=== PATIENT | female | born 1990 | race Caucasian/White ===

== ENCOUNTER 2017-10-24 17:01 | Observation (INO) ==
--- NOTE | 2017-10-24 17:44 | Emergency Department Note ---
Disposition Clinical Impression: Spontaneous , Vaginal bleeding Disposition: Admitted As Inpatient Forms: ED Satisfaction Letter Time of Disposition: 17:55 HPI - General Chief complaint: ED Vaginal Bleeding Stated complaint: Miscarriage Time Seen by Provider: 10/24/17 17:05 Source: patient Limitations: no limitations Nursing Notes Reviewed: Yes Vital Signs Reviewed: Yes - History of Present Illness HPI Narrative: Concern about status. 27-year-old female presents ED for spontaneous miscarriage. She was known thought to be 8 weeks. Most recent ultrasound revealed demise at 6-1/2 weeks. It progressed with expectant spontaneous discharge of the fetus. She has had intermittent bleeding and passed what she thought was some products of conception does appear like tissue. Today she had brisk escalation of pain followed by passage of clots and further bleeding. Bleeding has persisted and she was advised per her OB to return to the ED. Currently does not have much pain. No fever. No lightheadedness. No dysuria. Pt Subjective Complaint: vaginal bleeding Onset (ago): Just CHUTE GREASER Consistency: constant Location: pelvis Pain Severity: mild Improves with: none Worsens with: none Associated symptoms: Reports: denies other symptoms Vaginal discharge: none Vaginal bleeding: heavy, clots OB History - Previous Pregnancies: miscarriage If care: followed by OB, previous ultrasound confirms IUP - Related Data : 2 Para: 1 Home Medications Medication Instructions Recorded Confirmed ALPRAZolam [Xanax 1 MG Tablet] 1 mg PO BID 10/24/17 10/24/17 Amitriptyline [Elavil] 25 mg PO BID 10/24/17 10/24/17 Labetalol [Trandate] 100 mg PO DAILY 10/24/17 10/24/17 Pnv with Ca,No.72/Iron/FA [Pnv 1 tab PO DAILY 10/24/17 10/24/17 Plus Multivit Tab] Sertraline [Zoloft] 50 mg PO DAILY 10/24/17 10/24/17 Allergies Allergy/AdvReac Type Severity Reaction Status Date / Time No Known Allergies Allergy Verified 09/30/17 12:15 All systems ED: reviewed and negative except as stated. 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 Absent: respiratory distress - Cardiovascular Cardiovascular exam: Present: regular rate - Abdominal Exam Abdominal exam: Present: soft, Non-Tender - Female External Exam: Present: normal external exam Speculum Exam: Present: vaginal bleeding (Continuation of vaginal bleeding precluding review of the cervix. I evacuated the vaginal vault of blood 3 times and continued filling fairly rapidly. Moderate clots as well.) - Expanded Lower Extremity Exam Foot/toe exam: Absent: swelling Neurovascular/Tendon exam: Present: normal capillary refill - Back Exam Back exam: Absent: CVA tenderness (R), CVA tenderness (L) - Neurological Exam Neurological exam: Present: alert, oriented X3 - Psychiatric Psychiatric exam: Present: normal affect - Skin Skin exam: Present: warm, dry Course - Reevaluation(s) Reevaluation #1: D/W credit and collections analyst OB; requested order U/S and will see in the ED Time: 17:47 Reevaluation #2: Seen by OB in the ED; will take to L&D for observation, U/S cancelled. Time: 18:29 Vital Signs Temperature 97.4 F L 10/24/17 17:11 Pulse Rate 84 10/24/17 17:11 Respiratory Rate 18 10/24/17 17:11 Blood Pressure 145/108 10/24/17 17:11 O2 Sat by Pulse Oximetry 97 10/24/17 17:11 Temperature 97.4 F L 10/24/17 17:11 Pulse Rate 84 10/24/17 17:11 Respiratory Rate 18 10/24/17 17:11 Blood Pressure 145/108 10/24/17 17:11 O2 Sat by Pulse Oximetry 97 10/24/17 17:11 Oxygen Delivery Oxygen Delivery Room Air
[2017-10-24] MEDS ORDERED: Naloxone 0.4 MG/ML INJ IVP PRN ×2 (18:40→18:41)
--- NOTE | 2017-10-24 18:59 | OB/GYN History & Physical ---
Date of Encounter: 10/24/17 Time of Encounter: 18:56 Assessment and Plan (1) Spontaneous Current visit: Yes Status: Acute Admit to 1 NE. for observation Draw CBC now and at 0400 LR at 125 We will keep nothing by mouth for now, if no increase in bleeding we will change to regular diet in AM Methergine 0.2 mg by mouth 1 Plan of care discussed with Dr. Covarrubias History of Present Illness HPI: Ms. Cruz is a 27 year old female . Presents presented to the emergency department vaginal bleeding. Patient was diagnosed with missed AB on 10/05 With subsequent follow-up with Dr. Nguyen in the office on 10/15. Ultrasound on shows 2.3 cm gestational sac with irregular contour and small amount of fluid in the endocervical canal. Patient states she has been bleeding off and on since 10/05, today the bleeding increased to large clotting, then during dinner noticed that her pants are saturated, and blood was dripping onto the floor. Patient states she also has been having severe cramping the last 3 hours , took Motrin prior to arrival in the ED. ED physician called for consult after speculum exam showed vaginal vault continually filling with blood, and large clots noted. Patient states otherwise feels fine, besides being a little bit dizzy. Past Med Surg Social Fam HX - Past Medical History Medical history: no medical history Psychiatric history: anxiety, depression - Past Surgical History Surgical History: hip replacement - Social History Smoking Status: Never smoker Smokeless Tobacco Status: No Alcohol use: rarely Drug use: none - Family History Mother Living Status: Still Living Hx Family GI Disorders: Yes (Diverticulitis) Obstetrical History - Pregnancies : 2 Para: 1 Term: 1 : 0 Ab's: 1 Livin Medications and Allergies ALPRAZolam [Xanax 1 MG Tablet] 1 mg PO BID 10/24/17 [History] Amitriptyline [Elavil] 25 mg PO BID 10/24/17 [History] Labetalol [Trandate] 100 mg PO DAILY 10/24/17 [History] Pnv with Ca,No.72/Iron/FA [Pnv Plus Multivit Tab] 1 tab PO DAILY [History] Sertraline [Zoloft] 50 mg PO DAILY 10/24/17 [History] 3 Allergy/AdvReac Type Severity Reaction Status Date / Time No Known Allergies Allergy Verified 09/30/17 12:15 Review of System OB All systems PM: reviewed and no additional remarkable complaints except as stated - Constitutional Constitutional ROS IM: as per HPI Exam - Vital Signs Vital signs: Initial Vital Signs Temp Pulse Resp BP Pulse Ox 97.4 F L 84 18 145/108 97 10/24/17 17:11 10/24/17 17:11 10/24/17 17:11 10/24/17 17:11 10/24/17 17:11 - Constitutional Constitutional: well developed, well nourished, no acute distress - Abdomen Abdomen: Present: bowel sounds normal - Vulva Vulva: bilateral: normal - Vagina Vagina: Present: normal moisture, discharge (Speculum exam shows moderate amount of blood in vaginal vault, with small clot cleared with Carranza swabs, after that minimal bleeding noted from cervical os with 3 minutes of observation) - Cervix Cervix: Absent: lesion - Anus/Rectum Anus/Rectum: Present: normal perianal skin Results All other labs normal. - VTE Reasons for not Prescribing Prophylaxis: Treatment not Indicated - Low risk for VTE
[2017-10-24 19:18] LABS: Hematocrit 31.4 % (35.3-44.9); Hemoglobin 10.5 g/dL (11.5-15.4); Mean Corpuscular HGB Conc 33.4 g/dL (31.6-35.5); Mean Corpuscular Hemoglobin 28.3 pg (28.0-33.3); Mean Corpuscular Volume 84.6 fL (83.0-100.0); Mean Platelet Volume 10.3 fL (9.4-12.4); Platelet Count 263 K/mcL (140-400); Red Blood Count 3.71 M/mcL (3.82-4.97); Red Cell Distribution Width 14.6 % (11.5-14.5)
[2017-10-24] MEDS: Ringers Solution, Lactated 1,000 ML IVC SCH (20:20)
[2017-10-25] MEDS ORDERED: miSOPROStol 100 MCG TABLET ONE (04:01)
[2017-10-25 04:15] LABS: Hematocrit 30.4 % (35.3-44.9); Hemoglobin 10.3 g/dL (11.5-15.4); Immature Platelets 2.9 % (1.1-6.1); Mean Corpuscular HGB Conc 33.9 g/dL (31.6-35.5); Mean Corpuscular Hemoglobin 28.5 pg (28.0-33.3); Mean Corpuscular Volume 84.2 fL (83.0-100.0); Mean Platelet Volume 10.4 fL (9.4-12.4); Red Blood Count 3.61 M/mcL (3.82-4.97); Red Cell Distribution Width 14.4 % (11.5-14.5)
--- NOTE | 2017-10-25 07:25 | Event Note ---
Date of Encounter: 10/25/17 Time of Encounter: 07:21 0215-Called by nursing staff at 0145,pt had no bleeding from [id number], then pt complained she felt she was leaking, Had moderate amount of bleeding with golf ball sized clots. I went to assess patient and performed a speculum exam. Large clots noted in vaginal vault and vaginal vault continue to fill with blood. Swabbed until moderately clear able to visualize cervix, cervix remains visually closed, with small amount of bleeding noted from cervix patient given 0.2 mg Methergine by mouth at this time CBC redrawn hemoglobin from 10.6-10.3 vital signs stable at this time, we will continue to observe 0400- Called with bleeding update from nursing staff. Pt continues to have bleeding. In room to evaluate, Chux pads weighed. Discussed with Dr. Covarrubias Cytotec 400mcg given po, will continue to monitor. CBC at 0800 0600- Per RN, pt sleeping, bleeding has slowed down 155ml on last check 0700- In room to evaluate patient. Pt states was just up to restroom and passed large clot. softball sized clot noted in hat. Pt states feel very dizzy, slightly pale. Vital signs stable will redraw CBC now. Discussed need for D&C with patient and . Pt in agreement with proceeding with D&C 0720- BIOANALYST updated about patient, Lucy Covarrubias and Patrick updated, Care transferred to Dr. Nguyen at this time.
[2017-10-25 07:43] LABS: Hematocrit 29.2 % (35.3-44.9); Hemoglobin 9.7 g/dL (11.5-15.4); Mean Corpuscular HGB Conc 33.2 g/dL (31.6-35.5); Mean Corpuscular Volume 84.4 fL (83.0-100.0); Mean Platelet Volume 10.8 fL (9.4-12.4); Platelet Count 290 K/mcL (140-400); Red Blood Count 3.46 M/mcL (3.82-4.97); Red Cell Distribution Width 14.6 % (11.5-14.5)
[2017-10-25] MEDS: Ketorolac 30 MG/ML VIAL IVP PRN ×2 (10:06→18:36)
[2017-10-25 12:27] LABS: Hematocrit 26.6 % (35.3-44.9); Mean Corpuscular HGB Conc 33.8 g/dL (31.6-35.5); Mean Corpuscular Hemoglobin 28.5 pg (28.0-33.3); Mean Corpuscular Volume 84.2 fL (83.0-100.0); Mean Platelet Volume 10.7 fL (9.4-12.4); Platelet Count 284 K/mcL (140-400); Red Blood Count 3.16 M/mcL (3.82-4.97); Red Cell Distribution Width 14.6 % (11.5-14.5)
[2017-10-25] MEDS ORDERED: Methylergonovine 0.2 MG/ML AMPUL IM ONE (14:37)
[2017-10-25] MEDS: Ringers Solution, Lactated 1,000 ML IVC SCH ×2 (14:54→23:07)
--- NOTE | 2017-10-25 15:03 | Event Note ---
Date of Encounter: 10/25/17 Time of Encounter: 15:01 Talk to radiologist's earlier today regarding the findings of the ultrasound. Ultrasound revealed endometrial thickening of 2 cm. No products of conception were visualized. I discussed this with the patient and her . Patient has continued to have episodic bleeding. Discussed the possibility of needing a vacuum D&E. We will make patient nothing by mouth at this time and have anesthesia see the patient.
--- NOTE | 2017-10-25 21:44 | Event Note ---
Date of Encounter: 10/25/17 Time of Encounter: 21:43 Patient having scant bleeding at this time. Vital signs are stable. I told the patient that it is unlikely she will need to have a D&C. Patient and 's questions were answered.
[2017-10-26] MEDS: Ketorolac 30 MG/ML VIAL IVP PRN ×3 (00:22→17:09)
[2017-10-26 04:40] LABS: Basophils % 0.1 %; Eosinophils # 0.1 K/mcL (0.0-0.6); Eosinophils % 0.8 %; Hematocrit 22.5 % (35.3-44.9); Immature Granulocytes % 0.2 % (0-4); Lymphocytes % 23.7 %; Mean Corpuscular Hemoglobin 27.5 pg (28.0-33.3); Mean Corpuscular Volume 85.9 fL (83.0-100.0); Mean Platelet Volume 10.9 fL (9.4-12.4); Monocytes # 0.5 K/mcL (0.0-1.3); Monocytes % 5.8 %; Neutrophils # 5.9 K/mcL (1.6-8.9); Platelet Count 221 K/mcL (140-400); Red Blood Count 2.62 M/mcL (3.82-4.97); Red Cell Distribution Width 14.8 % (11.5-14.5); Segmented Neutrophils % 69.4 %
[2017-10-26 04:43] LABS: Hemoglobin 7.2 g/dL (11.5-15.4)
[2017-10-26] MEDS ORDERED: Acetaminophen 325 MG TABLET PO PRN (12:32)
--- NOTE | 2017-10-26 13:17 | OB/GYN Progress Note ---
Date of Encounter: 10/26/17 Time of Encounter: 12:45 - Assessment and Plan (1) Anemia associated with acute blood loss Current Visit: Yes Status: Acute Pt reports intermittent dizziness and shortness of breath with ambulation. Risks and benefits of blood transfusion discussed at length. Pt desires to receive PRBC's due to her sx. Plan for transfusion of 2 units PRBC's. POC discussed with Dr. Guadalupe. (2) Spontaneous Current Visit: Yes Status: Acute Subjective - Subjective Interval history: Pt reports feeling tired and weak with a severe headache. She reports intermittent dizziness and shortness of breath with ambulation. Patient reports: appetite normal, voiding normally, dizzy ambulation, pain well controlled Objective - Latest Vital Signs Latest vital signs: Vital Signs Temp Pulse Resp BP Pulse Ox 10/26/17 07:34 98.2 F 93 16 117/70 10/25/17 23:17 98.2 F 85 18 109/69 97 10/25/17 19:20 98.3 F 89 16 115/75 98 10/25/17 18:27 98.2 F 100 16 123/79 99 10/25/17 15:08 98.1 F 102 16 106/71 98 Intake and Output 10/25/17 10/26/17 10/26/17 23:59 07:59 15:59 Intake Total 1000 / 1000 500 / 500 480 / 480 Output Total 380 / 380 300 / 300 Balance 620 / 620 200 / 200 480 / 480 Intake: IV Fluids 1000 / 1000 Lactated Ringers 1,000 ML @ 125 1000 / 1000 mls/hr IVC .Q8H MARTHA Rx#: [id number] Oral 500 / 500 480 / 480 Output: Urine 300 / 300 300 / 300 Estimated Blood Loss 80 / 80 Other: Meal Breakfast Percent of Meal Consumed 75% Weight 101.741 kg Patient Weight 10/26/17 23:59 Weight 101.741 kg - Exam Lungs: bilateral: normal Chest: Normal S1, Normal S2 Extremities: Present: normal Comments: one episode of bleeding this am. - Labs Labs: Laboratory Results - last 24 hr 10/26/17 04:05 WBC 8.5 RBC 2.62 L Hgb 7.2 L D Hct 22.5 L MCV 85.9 MCH 27.5 L MCHC 32.0 RDW 14.8 H Plt Count 221 MPV 10.9 Immature Gran % 0.2 Seg Neutrophils % 69.4 Lymphocytes % 23.7 Monocytes % 5.8 Eosinophils % 0.8 Basophils % 0.1 Neutrophils # 5.9 Lymphocytes # 2.0 Monocytes # 0.5 Eosinophils # 0.1 Basophils # 0.0
[2017-10-26] MEDS ORDERED: 0.9 % Sodium Chloride 250 ML IVC SCH (13:30)
[2017-10-26] MEDS ORDERED: Ondansetron 4 MG/2 ML VIAL IVP PRN (13:49)
[2017-10-26] MEDS ORDERED: 0.9 % Sodium Chloride 1,000 ML ONE ×2 (14:17→17:30)
[2017-10-26] MEDS: Ringers Solution, Lactated 1,000 ML IVC SCH (20:31)
[2017-10-27 00:43] LABS: Basophils % 0.4 %; Eosinophils # 0.1 K/mcL (0.0-0.6); Eosinophils % 1.5 %; Hematocrit 27.4 % (35.3-44.9); Hemoglobin 9.3 g/dL (11.5-15.4); Immature Granulocytes % 0.4 % (0-4); Lymphocytes # 2.6 K/mcL (0.6-4.6); Mean Corpuscular HGB Conc 33.9 g/dL (31.6-35.5); Mean Corpuscular Hemoglobin 28.4 pg (28.0-33.3); Mean Corpuscular Volume 83.5 fL (83.0-100.0); Mean Platelet Volume 10.6 fL (9.4-12.4); Monocytes # 0.5 K/mcL (0.0-1.3); Monocytes % 6.3 %; Neutrophils # 5.1 K/mcL (1.6-8.9); Nucleated Red Blood Cells 0.2 /100 WBC (0); Platelet Count 227 K/mcL (140-400); Red Blood Count 3.28 M/mcL (3.82-4.97); Segmented Neutrophils % 60.4 %
[2017-10-27] MEDS: Ringers Solution, Lactated 1,000 ML IVC SCH (04:07)
[2017-10-27] MEDS: Ketorolac 30 MG/ML VIAL IVP PRN (05:09)
[2017-10-27 08:35] VITALS: BP 118/81
--- NOTE | 2017-10-27 10:03 | Discharge Summary ---
Date of Encounter: 10/27/17 Time of Encounter: 10:00 - Discharge Diagnosis (1) Spontaneous Priority: Primary Status: Acute Comments: Scant bleeding overnight, no clots noted Pt feels better following transfusion, no dizziness or other complaints , Discharge home with bleeding precautions. - Discharge Medications Prescriptions: Ferrous Sulfate 325 mg PO DAILY #60 tablet Methylergonovine [Methergine] 0.2 mg PO TID #6 tablet Home Medications: ALPRAZolam [Xanax 1 MG Tablet] 1 mg PO BID 10/24/17 [History] Amitriptyline [Elavil] 25 mg PO BID 10/24/17 [History] Labetalol [Trandate] 100 mg PO DAILY 10/24/17 [History] Pnv with Ca,No.72/Iron/FA [Pnv Plus Multivit Tab] 1 tab PO DAILY [History] Sertraline [Zoloft] 50 mg PO DAILY 10/24/17 [History] Acetaminophen [Tylenol] 650 mg PO Q6HR PRN tablet 10/27/17 [Rx] Ferrous Sulfate 325 mg PO DAILY #60 tablet 10/27/17 [Rx] Labetalol [Trandate] 50 mg PO BID tablet 10/27/17 [Rx] Methylergonovine [Methergine] 0.2 mg PO TID #6 tablet 10/27/17 [Rx] Allergies/Adverse Reactions: 3 Allergy/AdvReac Type Severity Reaction Status Date / Time No Known Allergies Allergy Verified 09/30/17 12:15 Data Procedures and tests throughout hospitalization: Laboratory Tests 10/24/17 10/25/17 10/25/17 19:02 02:37 07:13 WBC 9.0 9.3 10.7 RBC 3.71 L 3.61 L 3.46 L Hgb 10.5 L 10.3 L 9.7 L Hct 31.4 L 30.4 L 29.2 L MCV 84.6 84.2 84.4 MCH 28.3 28.5 28.0 MCHC 33.4 33.9 33.2 RDW 14.6 H 14.4 14.6 H Plt Count 263 263 290 MPV 10.3 10.4 10.8 Immature Gran % Seg Neutrophils % Lymphocytes % Monocytes % Eosinophils % Basophils % Neutrophils # Lymphocytes # Monocytes # Eosinophils # Basophils # Nucleated RBCs/100 WBC Immature Plt Fraction 2.9 Blood Type Antibody Screen Crossmatch 10/25/17 10/26/17 10/26/17 12:11 04:05 13:12 WBC 11.2 H 8.5 RBC 3.16 L 2.62 L Hgb 9.0 L 7.2 L D Hct 26.6 L 22.5 L MCV 84.2 85.9 MCH 28.5 27.5 L MCHC 33.8 32.0 RDW 14.6 H 14.8 H Plt Count 284 221 MPV 10.7 10.9 Immature Gran % 0.2 Seg Neutrophils % 69.4 Lymphocytes % 23.7 Monocytes % 5.8 Eosinophils % 0.8 Basophils % 0.1 Neutrophils # 5.9 Lymphocytes # 2.0 Monocytes # 0.5 Eosinophils # 0.1 Basophils # 0.0 Nucleated RBCs/100 WBC Immature Plt Fraction Blood Type A POSITIVE Antibody Screen NEGATIVE Crossmatch See Detail 10/27/17 00:32 WBC 8.5 RBC 3.28 L Hgb 9.3 L D Hct 27.4 L MCV 83.5 MCH 28.4 MCHC 33.9 RDW 15.0 H Plt Count 227 MPV 10.6 Immature Gran % 0.4 Seg Neutrophils % 60.4 Lymphocytes % 31.0 Monocytes % 6.3 Eosinophils % 1.5 Basophils % 0.4 Neutrophils # 5.1 Lymphocytes # 2.6 Monocytes # 0.5 Eosinophils # 0.1 Basophils # 0.0 Nucleated RBCs/100 WBC 0.2 H Immature Plt Fraction Blood Type Antibody Screen Crossmatch Labs on day of discharge: Labs from last 24 hours 10/27/17 10/26/17 00:32 13:12 WBC 8.5 RBC 3.28 L Hgb 9.3 L D Hct 27.4 L MCV 83.5 MCH 28.4 MCHC 33.9 RDW 15.0 H Plt Count 227 MPV 10.6 Immature Gran % 0.4 Seg Neutrophils % 60.4 Lymphocytes % 31.0 Monocytes % 6.3 Eosinophils % 1.5 Basophils % 0.4 Neutrophils # 5.1 Lymphocytes # 2.6 Monocytes # 0.5 Eosinophils # 0.1 Basophils # 0.0 Nucleated RBCs/100 WBC 0.2 H Blood Type A POSITIVE Antibody Screen NEGATIVE Crossmatch See Detail - Impressions ITS Impressions Obstetrics Ultrasound 10/25/17 10:01 IMPRESSION: Compared to the prior examination the previously identified intrauterine gestational sac is now absent with heterogeneous echogenicity of the endometrial canal suggesting hemorrhage. The findings are consistent with active . Results of the examination were discussed with Korina Sotomayor (floor nurse) on 10/25/2017 at 11:30. I also discussed the findings with Dr. Nguyen on 10/25/2017 at 12:06 p.m. D/ / 10/25/2017 12:10:50 Maurice Maciel MD / polly Interpreting Provider: Maurice Maciel MD Date of admission: 10/24/17 18:36 Primary care physician: Carmen Jesus CNP Discharging clinician: Joanne Jean Anticipated date of discharge: 10/27/17 - Patient Status Disposition: Home, Self-Care Condition: Good Functional capacity at discharge: independent ambulation Overall status at discharge: patient is back to baseline - Discharge Instructions Instructions: Anemia (GEN) Follow Up With: Carmen Jesus CNP [Primary Care Provider] - Jose De Jesus Nguyen MD [Partnered Physician] - - Diet and Activity Activity: resume usual activities as tolerated Diet: regular diet Hospital Course TRAVEL PT Reason for admission: other (SAB [place]) Discharge diagnosis: other (SAB) Hospital course: Pt admitted for management of bleeding with SAB, Managed with medication, transfusion for symptomatic hgb, now stable and appropriate for discharge. Time Attestation: Total time spent providing and/or coordinating discharge services: Time Spent: Less than 30 minutes Exam - Constitutional Vitals: Temp Pulse Resp BP Pulse Ox 98.0 F 81 16 118/81 98 10/27/17 08:34 10/27/17 08:34 10/27/17 08:52 10/27/17 08:34 10/27/17 08:34 General appearance IM: A&O X 3 - Respiratory Respiratory exam: Present: CTAB - Cardiovascular Cardiovascular exam IM: Present: RRR - GI/Abdominal GI/Abdominal exam IM: normal bowel sounds, soft - Extremities Exam Extremities exam IM: Present: normal capillary refill, normal inspection - Neurological Exam Neurological exam: normal gait, oriented X3 - VTE Reasons for not Prescribing Prophylaxis: Treatment not Indicated - Low risk for VTE
== END 2017-10-27 10:30 | disposition home or self-care (01) ==
LOC: 1NENUOBS 17:01 → EMEROO 17:01 → 1NENUOBS 18:29
PROVIDERS: ADMIT Obstetrics & Gynecology; ATTEND Obstetrics & Gynecology

== ENCOUNTER 2017-11-22 15:46 | Observation (INO) ==
--- NOTE | 2017-11-22 16:37 | Emergency Department Note ---
Addendum entered and electronically signed by Santa Batista DO 11/22/17 21:41: - Attending Attestation Upon reevaluation the attending entered the room and noticed that the patient was tachycardic, diaphragmatic. She was having acute blood loss and had saturated the padding that she was sitting on. Immediately ordered were Packed red blood cells and IV fluids were given. Dr. Nguyen of FOUR CORNER STAYER MACHINE OPERATOR was called and he came to bedside of patient. For full critical care and detailed notes the attending note. Original Note: Disposition Clinical Impression: Vaginal bleeding, Anemia due to acute blood loss, Sinus tachycardia Disposition: Admitted As Inpatient Condition: Serious Time of Disposition: 19:18 Female Urogenital HPI - General Chief complaint: ED Vaginal Bleeding Stated complaint: Miscarriage , Vag bleed since Time Seen by Provider: 11/22/17 16:01 Source: patient Mode of arrival: ambulatory Limitations: no limitations Nursing Notes Reviewed: Yes Vital Signs Reviewed: Yes - History of Present Illness HPI Narrative: 27yo female with past medical history of hypertension presented to [facility] complaining of vaginal bleeding. She reported on 2017 she was told that she would miscarry her , she was at 8 weeks and 5 days gestation. On 10/16/2017 she started having spontaneous vaginal bleeding which intensified and she had to be admitted on October 24- for symptomatic anemia requiring 2 units of packed red blood cells. During her admission Dr. Nguyen whom is her FOUR CORNER STAYER MACHINE OPERATOR saw her in the hospital and discharged her with 3 days of Cytotec. Since then she had had light bleeding however today she was at work and was getting up from her desk when she started passing blood clots and then began having abdominal cramping. She denies syncope, weakness, lightheadedness, trauma, chest pain, shortness of breath, nausea, vomiting, fever, chills. - Related Data Home Medications Medication Instructions Recorded Confirmed ALPRAZolam [Xanax 1 MG Tablet] 1 mg PO BID 10/24/17 10/24/17 Amitriptyline [Elavil] 25 mg PO BID 10/24/17 10/24/17 Labetalol [Trandate] 100 mg PO DAILY 10/24/17 10/24/17 Pnv with Ca,No.72/Iron/FA [Pnv 1 tab PO DAILY 10/24/17 10/24/17 Plus Multivit Tab] Sertraline [Zoloft] 50 mg PO DAILY 10/24/17 10/24/17 Previous Rx's Medication Instructions Recorded Acetaminophen [Tylenol] 650 mg PO Q6HR PRN tablet 10/27/17 Ferrous Sulfate 325 mg PO DAILY #60 tablet 10/27/17 Labetalol [Trandate] 50 mg PO BID tablet 10/27/17 Methylergonovine [Methergine] 0.2 mg PO TID #6 tablet 10/27/17 Allergies Allergy/AdvReac Type Severity Reaction Status Date / Time No Known Allergies Allergy Verified 09/30/17 12:15 Constitutional: Denies: fever, chills, weakness Eyes: Denies: vision change Cardiovascular: Denies: chest pain Respiratory: Denies: cough, dyspnea Gastrointestinal: Reports: abdominal pain (Pelvic). Denies: nausea, vomiting, diarrhea Integumentary: Denies: rash Neurological: Denies: headache, weakness Endocrine: Reports: fatigue Hematological/Lymphatic: Denies: easy bleeding Past Medical History - Past Medical History Source: patient Medical history: Reports: hypertension Surgical history: Reports: hip replacement Psychiatric history: Reports: anxiety, depression FOUR CORNER STAYER MACHINE OPERATOR history: Reports: therapeutic - Social History Smoking Status: Never smoker Smokeless Tobacco Status: No Alcohol use: Reports: rarely Drug use: Reports: none Physical Exam - General Limitations: no limitations General appearance: alert - Head Head exam: atraumatic, normocephalic - Eye Eye exam: Present: normal appearance - ENT ENT exam: mucous membranes moist - Chest Chest inspection: Present: normal inspection - Respiratory Respiratory exam: Present: normal lung sounds bilaterally. Absent: respiratory distress, wheezes - Cardiovascular Cardiovascular exam: Present: regular rate, normal rhythm - Abdominal Exam Abdominal exam: Present: soft, Non-Tender, normal bowel sounds. Absent: guarding - Extremities Exam Extremities exam: Present: normal inspection. Absent: tenderness - Back Exam Back exam: Present: normal inspection - Neurological Exam Neurological exam: Present: alert, oriented X3 - Psychiatric Psychiatric exam: Present: normal affect, normal mood - Skin Skin exam: Present: dry, intact Course Course Narrative: 27yo female with past medical history of hypertension presented to [facility] complaining of vaginal bleeding. She has had a spontaneous which started October 16, 2017 for which she has had to be hospitalized needing 2 units of packed red blood cells. Since then she has had light bleeding until today for which she passed to blood clots at work and has had pelvic cramping. This is likely continued bleeding from the miscarriage. Will order a CBC, BMP, beta hCG, PT INR, type in screening. Will call the OB/ [employer]OCK[employer] FIRE WORKER concrete buildings assembler to inform them that the patient is in the ED. - Reevaluation(s) Reevaluation #1: Patient is hemodynamically stable and no acute distress. She was informed her hemoglobin stable at 10.1. Shannan cadena INDEPENDENT FILM MAKER of the [facility] [employer]NER ST[facility]ER MACHINE OPERATOR clinic was called and informed of the patient in the ED. She recommended patient follow-up outpatient with Dr. Nguyen whom is her FOUR CORNER STAYER MACHINE OPERATOR. Time: 18:06 Vital Signs Temperature 98.1 F 11/22/17 15:58 Pulse Rate 84 11/22/17 15:58 Respiratory Rate 16 11/22/17 15:58 Blood Pressure 139/101 11/22/17 15:58 O2 Sat by Pulse Oximetry 100 11/22/17 15:58 Temperature 98.4 F 11/22/17 22:07 Pulse Rate 97 11/22/17 22:07 Respiratory Rate 16 11/22/17 22:07 Blood Pressure 127/85 11/22/17 22:07 O2 Sat by Pulse Oximetry 100 11/22/17 22:07 Oxygen Delivery Oxygen Delivery Nasal Cannula Urogenital-Female - MDM Narrative Medical decision making narrative: 27yo female with past medical history of hypertension presented to [facility] complaining of vaginal bleeding. She reported on 2017 she was told that she would miscarry her , she was at 8 weeks and 5 days gestation. On 10/16/2017 she started having spontaneous vaginal bleeding which intensified and she had to be admitted on October 24- for symptomatic anemia requiring 2 units of packed red blood cells. During her admission Dr. Nguyen whom is her FOUR CORNER STAYER MACHINE OPERATOR saw her in the hospital and discharged her with 3 days of Cytotec. Since then she had had light bleeding however today she was at work and was getting up from her desk when she started passing blood clots and then began having abdominal cramping. Her CBC demonstrated hemoglobin 10.1 which is improved from prior checks. Her beta hCG is 43 which has significantly decreased. She has been afebrile, hemodynamically stable, no acute distress. Shannan the INDEPENDENT FILM MAKER of FOUR CORNER STAYER MACHINE OPERATOR had been called and made where of the patient's status and presence in the ER. She recommended office follow-up. The patient did have vaginal bleeding however she remained hemodynamically stable, no dizziness, syncope, chest pain, shortness of breath, fever, chills, lightheadedness. She was reassured and instructed to follow-up in call Dr. Nguyen's office in the morning to get in DAVIN. She was also instructed to take ibuprofen as needed for pain. She was given a work excuse. She was instructed to return to the ED should she develop syncope, fever, chills, lightheadedness, dizziness, shortness of breath, increased vaginal bleeding. She was alongside her , alert and oriented times 3, and she stated clear understanding of treatment plan. - Medical Records Medical records reviewed: Yes I reviewed the patient's medical records. - Lab Data Lab results reviewed: Yes I reviewed the patient's lab results. Result diagrams: 11/22/17 23:08 11/22/17 16:35 Lab Results 11/22/17 11/22/17 11/22/17 Range/Units 16:35 16:35 16:35 WBC 8.0 (4.3-11.1) K/mcL RBC 3.75 L (3.82-4.97) M/mcL Hgb 10.1 L (11.5-15.4) g/dL Hct 31.5 L (35.3-44.9) % MCV 84.0 (83.0-100.0) fL MCH 26.9 L (28.0-33.3) pg MCHC 32.1 (31.6-35.5) g/dL RDW 13.4 (11.5-14.5) % Plt Count 306 (140-400) K/mcL MPV 9.9 (9.4-12.4) fL Immature Gran % 0.4 (0-4) % Seg Neutrophils % 68.3 % Lymphocytes % 22.7 % Monocytes % 6.3 % Eosinophils % 1.8 % Basophils % 0.5 % Neutrophils # 5.4 (1.6-8.9) K/mcL Lymphocytes # 1.8 (0.6-4.6) K/mcL Monocytes # 0.5 (0.0-1.3) K/mcL Eosinophils # 0.1 (0.0-0.6) K/mcL Basophils # 0.0 (0.0-0.2) K/mcL PT 11.6 (9.4-12.1) Seconds INR 1.1 Sodium 139 (136-145) mEq/L Potassium 4.0 (3.5-5.1) mEq/L Chloride 105 (98-107) mEq/L Carbon Dioxide 25 (23-29) mEq/L BUN 14 (6-20) mg/dL Creatinine 0.65 (0.60-1.20) mg/dL Est GFR ( Amer) > 60 (> 60) Est GFR (Non-Af Amer) > 60 (> 60) BUN/Creatinine Ratio 22 (6-26) Glucose 86 (70-105) mg/dL Calculated Osmolality 288 (280-300) Calcium 9.6 (8.6-10.3) mg/dL Total Bilirubin 0.4 (0.3-1.0) mg/dL Direct Bilirubin 0.1 (0.0-0.2) mg/dL Indirect Bilirubin 0.3 (0.0-1.2) mg/dL AST 19 (13-39) Units/L ALT 24 (7-52) Units/L Alkaline Phosphatase 64 (34-104) Units/L Serum Total Protein 7.2 (6.4-8.9) g/dL Albumin 4.3 (3.5-5.7) g/dL Globulin 2.9 (2.4-3.5) g/dL Albumin/Globulin Ratio 1.5 (1.1-2.2) Beta HCG, Quant 43 H (Less than 5) mIU/mL Urine Color (Yellow) Urine Clarity (Clear) Urine pH (5.0-8.0) pH Units Ur Specific [place] (1.010-1.025) Urine Protein (Neg-Trace) mg/dL Urine Glucose (UA) (Normal) mg/dL Urine Ketones (Negative) mg/dL Urine Blood (Negative) Urine Nitrite (Negative) Urine Bilirubin (Negative) Urine Urobilinogen (Normal) mg/dL Ur Leukocyte Esterase (Negative) Urine Microscopic RBC (0-3) per hpf Urine Microscopic WBC (0-3) per hpf Ur Squamous Epith Cells (None-Few) per lpf Urine Bacteria (None-Few) per hpf Hyaline Casts (None-Few) per lpf Ur Culture Indicated? (NO) Blood Type Antibody Screen Crossmatch 11/22/17 11/22/17 11/22/17 Range/Units 16:35 17:12 20:21 WBC (4.3-11.1) K/mcL RBC (3.82-4.97) M/mcL Hgb 8.8 L (11.5-15.4) g/dL Hct 27.8 L (35.3-44.9) % MCV (83.0-100.0) fL MCH (28.0-33.3) pg MCHC (31.6-35.5) g/dL RDW (11.5-14.5) % Plt Count (140-400) K/mcL MPV (9.4-12.4) fL Immature Gran % (0-4) % Seg Neutrophils % % Lymphocytes % % Monocytes % % Eosinophils % % Basophils % % Neutrophils # (1.6-8.9) K/mcL Lymphocytes # (0.6-4.6) K/mcL Monocytes # (0.0-1.3) K/mcL Eosinophils # (0.0-0.6) K/mcL Basophils # (0.0-0.2) K/mcL PT (9.4-12.1) Seconds INR Sodium (136-145) mEq/L Potassium (3.5-5.1) mEq/L Chloride (98-107) mEq/L Carbon Dioxide (23-29) mEq/L BUN (6-20) mg/dL Creatinine (0.60-1.20) mg/dL Est GFR ( Amer) (> 60) Est GFR (Non-Af Amer) (> 60) BUN/Creatinine Ratio (6-26) Glucose (70-105) mg/dL Calculated Osmolality (280-300) Calcium (8.6-10.3) mg/dL Total Bilirubin (0.3-1.0) mg/dL Direct Bilirubin (0.0-0.2) mg/dL Indirect Bilirubin (0.0-1.2) mg/dL AST (13-39) Units/L ALT (7-52) Units/L Alkaline Phosphatase (34-104) Units/L Serum Total Protein (6.4-8.9) g/dL Albumin (3.5-5.7) g/dL Globulin (2.4-3.5) g/dL Albumin/Globulin Ratio (1.1-2.2) Beta HCG, Quant (Less than 5) mIU/mL Urine Color Yellow (Yellow) Urine Clarity Clear (Clear) Urine pH 5.5 (5.0-8.0) pH Units Ur Specific [place] 1.026 H (1.010-1.025) Urine Protein Trace (Neg-Trace) mg/dL Urine Glucose (UA) Normal (Normal) mg/dL Urine Ketones Negative (Negative) mg/dL Urine Blood Large H (Negative) Urine Nitrite Negative (Negative) Urine Bilirubin Negative (Negative) Urine Urobilinogen Normal (Normal) mg/dL Ur Leukocyte Esterase Negative (Negative) Urine Microscopic RBC 5-15 H (0-3) per hpf Urine Microscopic WBC 3-5 H (0-3) per hpf Ur Squamous Epith Cells Many H (None-Few) per lpf Urine Bacteria None Seen (None-Few) per hpf Hyaline Casts None Seen (None-Few) per lpf Ur Culture Indicated? NO (NO) Blood Type A POSITIVE Antibody Screen NEGATIVE Crossmatch See Detail Critical Care Time Critical Care Time: No
[2017-11-22 16:52] LABS: Basophils % 0.5 %; Eosinophils # 0.1 K/mcL (0.0-0.6); Eosinophils % 1.8 %; Hematocrit 31.5 % (35.3-44.9); Hemoglobin 10.1 g/dL (11.5-15.4); Immature Granulocytes % 0.4 % (0-4); Lymphocytes # 1.8 K/mcL (0.6-4.6); Lymphocytes % 22.7 %; Mean Corpuscular HGB Conc 32.1 g/dL (31.6-35.5); Mean Corpuscular Hemoglobin 26.9 pg (28.0-33.3); Mean Platelet Volume 9.9 fL (9.4-12.4); Monocytes # 0.5 K/mcL (0.0-1.3); Monocytes % 6.3 %; Neutrophils # 5.4 K/mcL (1.6-8.9); Platelet Count 306 K/mcL (140-400); Red Blood Count 3.75 M/mcL (3.82-4.97); Red Cell Distribution Width 13.4 % (11.5-14.5); Segmented Neutrophils % 68.3 %
[2017-11-22 16:59] LABS: INR 1.1; Prothrombin Time 11.6 Seconds (9.4-12.1)
[2017-11-22 17:25] LABS: Bilirubin,Urine Negative (Negative); Blood,Urine Large (Negative); Clarity,Urine Clear (Clear); Color,Urine Yellow (Yellow); Glucose,Urine (UA) Normal (Normal); Ketones,Urine Negative (Negative); Leukocyte Esterase,Urine Negative (Negative); Nitrite,Urine Negative (Negative); PH,Urine 5.5 pH Units (5.0-8.0); Protein,Urine Trace mg/dL (Neg-Trace); Specific Gravity,Urine 1.026 (1.010-1.025); Urobilinogen,Urine Normal (Normal)
[2017-11-22 17:27] LABS: Alanine Aminotransferase 24 Units/L (7-52); Albumin 4.3 g/dL (3.5-5.7); Albumin/Globulin Ratio 1.5 (1.1-2.2); Alkaline Phosphatase 64 Units/L (34-104); Aspartate Amino Transferase 19 Units/L (13-39); BUN/Creatinine Ratio 22 (6-26); Bilirubin,Direct 0.1 mg/dL (0.0-0.2); Bilirubin,Indirect 0.3 mg/dL (0.0-1.2); Bilirubin,Total 0.4 mg/dL (0.3-1.0); Blood Urea Nitrogen 14 mg/dL (6-20); Calcium 9.6 mg/dL (8.6-10.3); Carbon Dioxide 25 mEq/L (23-29); Chloride 105 mEq/L (98-107); Globulin 2.9 g/dL (2.4-3.5); Glucose 86 mg/dL (70-105); Osmolality,Calculated 288 (280-300); Sodium 139 mEq/L (136-145); Total Protein 7.2 g/dL (6.4-8.9); eGFR For African Americans > 60 (> 60); eGFR For Non-African Americans > 60 (> 60)
[2017-11-22 17:27] LABS: Bacteria,Urine None Seen per hpf (None-Few); Hyaline Casts,Urine None Seen per lpf (None-Few); Squamous Epithelial Cell,Urine Many per lpf (None-Few)
[2017-11-22] MEDS: 0.9 % Sodium Chloride 1,000 ML IVC ONE ×2 (17:56→21:47)
[2017-11-22] MEDS ORDERED: 0.9 % Sodium Chloride 1,000 ML ONE ×3 (20:30→21:00)
[2017-11-22 20:32] LABS: Hematocrit 27.8 % (35.3-44.9); Hemoglobin 8.8 g/dL (11.5-15.4)
[2017-11-22] MEDS ORDERED: 0.9 % Sodium Chloride 500 ML ONE ×2 (20:53→21:07)
[2017-11-22] MEDS ORDERED: *HR* Oxytocin 10 UNIT/ML VIAL IM ONE (21:05)
[2017-11-22] MEDS ORDERED: Methylergonovine 0.2 MG/ML AMPUL IM ONE (21:05)
[2017-11-22] MEDS ORDERED: miSOPROStol 100 MCG TABLET PO SCH (22:30)
[2017-11-22] MEDS ORDERED: Naloxone 0.4 MG/ML INJ IVP PRN (22:39)
--- NOTE | 2017-11-22 22:57 | OB/GYN History & Physical ---
Date of Encounter: 11/23/17 Time of Encounter: 22:54 Assessment and Plan (1) Vaginal bleeding Current visit: Yes Status: Acute Admitted her observation Conservative management at this time 1L LR with 20 units of Pitocin at 125ml per hour then change to LR 600 g by mouth Cytotec 1 Vital signs hourly 4 then every 4 hours Pad count with weights every hour Nothing by mouth at this time Anesthesia consult for possible emergent D&C if patient has another hemorrhage SCDs CBC now and then again at 0400 Plan of care discussed with Dr. Nguyen History of Present Illness Chief complaint: vaginal bleeding HPI: Ms. Cruz is a 27 year old female anticipate the ER today with vaginal bleeding. Patient with a history of diagnosed missed AB on 10/05, initially with expectant management, patient admitted to the hospital 10/24-10/27 for vaginal bleeding with hemorrhage, requiring blood transfusion, discharged home for 3 days of Cytotec. Patient states she has been stable with only slight vaginal bleeding besides one incident of bleeding with clots on 11/02. Patient states today she was at work and felt a gush of blood, and had a large amount of bleeding with clots noted. Initially an ER only had small amount of bleeding with clots, was ED was preparing to discharge patient home, with a when patient terminated she was diaphoretic tachycardic and having significant vaginal bleeding. Dr. Nguyen and I were called to bedside to evaluate patient, had a small to moderate amount of vaginal bleeding on speculum exam, patient very pale diaphoretic, receiving transfusion of 2 units of uncrossed matched blood at that time. Patient transferred to OB floor for further management. Past Med Surg Social Fam HX - Past Medical History Medical history: hypertension Psychiatric history: anxiety, depression - Past Surgical History Surgical History: hip replacement Additional surgical history: Left - Social History Smoking Status: Never smoker Smokeless Tobacco Status: No Alcohol use: rarely Drug use: none - Family History Mother Living Status: Still Living Hx Family GI Disorders: Yes (Diverticulitis) Obstetrical History - Pregnancies : 1 Para: 0 Term: 0 : 0 Ab's: 1 Livin Medications and Allergies ALPRAZolam [Xanax 1 MG Tablet] 1 mg PO BID 10/24/17 [History] Amitriptyline [Elavil] 25 mg PO BID 10/24/17 [History] Labetalol [Trandate] 100 mg PO DAILY 10/24/17 [History] Pnv with Ca,No.72/Iron/FA [Pnv Plus Multivit Tab] 1 tab PO DAILY [History] Sertraline [Zoloft] 50 mg PO DAILY 10/24/17 [History] Acetaminophen [Tylenol] 650 mg PO Q6HR PRN tablet 10/27/17 [Rx] Ferrous Sulfate 325 mg PO DAILY #60 tablet 10/27/17 [Rx] Labetalol [Trandate] 50 mg PO BID tablet 10/27/17 [Rx] Methylergonovine [Methergine] 0.2 mg PO TID #6 tablet 10/27/17 [Rx] 3 Allergy/AdvReac Type Severity Reaction Status Date / Time No Known Allergies Allergy Verified 09/30/17 12:15 Exam - Vital Signs Vital signs: Initial Vital Signs Temp Pulse Resp BP Pulse Ox 98.1 F 84 16 139/101 100 11/22/17 15:58 11/22/17 15:58 11/22/17 15:58 11/22/17 15:58 11/22/17 15:58 - Constitutional Constitutional: well developed, well nourished, no acute distress, other (pale) - HEENT HEENT: Mucus Membranes Moist - Lungs Respiratory exam: CTAB - Cardiovascular Cardiovascular exam: RRR - Abdomen Abdomen: Present: bowel sounds normal, non tender - Extremities Extremities exam: normal capillary refill, normal inspection - Comments Comments: small amount of vaginal bleeding noted. On internal exam in ED, cervical OS remains dilated a fingertip Results Result Diagrams: 11/22/17 23:08 11/22/17 16:35 Abnormal lab results RBC 3.75 M/mcL (3.82-4.97) L 11/22/17 16:35 Hgb 8.8 g/dL (11.5-15.4) L 11/22/17 20:21 Hct 27.8 % (35.3-44.9) L 11/22/17 20:21 MCH 26.9 pg (28.0-33.3) L 11/22/17 16:35 Beta HCG, Quant 43 mIU/mL (Less than 5) H 11/22/17 16:35 Ur Specific [place] 1.026 (1.010-1.025) H 11/22/17 17:12 Urine Blood Large (Negative) H 11/22/17 17:12 Urine Microscopic RBC 5-15 per hpf (0-3) H 11/22/17 17:12 Urine Microscopic WBC 3-5 per hpf (0-3) H 11/22/17 17:12 Ur Squamous Epith Cells Many per lpf (None-Few) H 11/22/17 17:12 All other labs normal. - VTE Reasons for not Prescribing Prophylaxis: Medical contraindication
[2017-11-22 23:18] LABS: Basophils # 0.1 K/mcL (0.0-0.2); Basophils % 0.4 %; Eosinophils # 0.1 K/mcL (0.0-0.6); Eosinophils % 0.9 %; Hematocrit 31.5 % (35.3-44.9); Hemoglobin 9.9 g/dL (11.5-15.4); Immature Granulocytes % 0.4 % (0-4); Mean Corpuscular HGB Conc 31.4 g/dL (31.6-35.5); Mean Corpuscular Hemoglobin 27.3 pg (28.0-33.3); Mean Corpuscular Volume 86.8 fL (83.0-100.0); Mean Platelet Volume 10.6 fL (9.4-12.4); Monocytes # 0.7 K/mcL (0.0-1.3); Monocytes % 5.1 %; Neutrophils # 10.3 K/mcL (1.6-8.9); Platelet Count 258 K/mcL (140-400); Red Blood Count 3.63 M/mcL (3.82-4.97); Red Cell Distribution Width 13.3 % (11.5-14.5); Segmented Neutrophils % 78.2 %
--- NOTE | 2017-11-22 23:18 | Anesthesia Evaluation PreOp ---
Date of Encounter: 11/23/17 Time of Encounter: 23:14 - Past History Planned Operation: D&C re: vaginal bleeding s/p missed AB on 10/05 Cardiac History: HTN Pulmonary History: Denies Any Significant HX MANAGER SUPPLY CHAIN PLANNING History: Other (Anxiety/Depression) Other Medical History: Denies Any Significant HX (RA necessitating R-Total Hip 2013), Other (Pt s/p missed AB admitted 10/24-10/27/2017 for vaginal bleeding requiring blood transfusion, d/c'd home for 3 days of Cytotec. Pt reportedly stable since that time until presenting today in ED where she was initially stable until she became pale, diaphoretic and ultimately received 2 Additional units pRBCs prior linda being readmitted) Anesthesia History: No Prior Anesthetic Complications, Past Anesthesia (L-Hip replacement 2013, 2009) : No () Alcohol Use: rarely Drug use: none Medications and Allergies ALPRAZolam [Xanax 1 MG Tablet] 1 mg PO BID 10/24/17 [History] Amitriptyline [Elavil] 25 mg PO BID 10/24/17 [History] Labetalol [Trandate] 100 mg PO DAILY 10/24/17 [History] Pnv with Ca,No.72/Iron/FA [Pnv Plus Multivit Tab] 1 tab PO DAILY [History] Sertraline [Zoloft] 50 mg PO DAILY 10/24/17 [History] Acetaminophen [Tylenol] 650 mg PO Q6HR PRN tablet 10/27/17 [Rx] Ferrous Sulfate 325 mg PO DAILY #60 tablet 10/27/17 [Rx] Labetalol [Trandate] 50 mg PO BID tablet 10/27/17 [Rx] Methylergonovine [Methergine] 0.2 mg PO TID #6 tablet 10/27/17 [Rx] 3 Allergy/AdvReac Type Severity Reaction Status Date / Time No Known Allergies Allergy Verified 09/30/17 12:15 - Meds/Allergy Pre-op Review Medications Reviewed: Yes Allergies Reviewed: Yes Beta Blockers on Current Med List: Yes (Labetalol) If Beta Blockers taken, Date/Time (Last Dose taken): 11/22/2017 @ 0900 Anesthesia Results - Labs 11/23/17 04:31 11/22/17 16:35 Laboratory Results Short CBC 11/23/17 11/22/17 11/22/17 Range/Units 04:31 23:08 20:21 WBC 9.7 13.2 H D (4.3-11.1) K/mcL Hgb 8.2 L D 9.9 L 8.8 L (11.5-15.4) g/dL Hct 24.8 L 31.5 L 27.8 L (35.3-44.9) % Plt Count 232 258 (140-400) K/mcL Neutrophils # 6.5 10.3 H (1.6-8.9) K/mcL 11/22/17 Range/Units 16:35 WBC 8.0 (4.3-11.1) K/mcL Hgb 10.1 L (11.5-15.4) g/dL Hct 31.5 L (35.3-44.9) % Plt Count 306 (140-400) K/mcL Neutrophils # 5.4 (1.6-8.9) K/mcL WBC 8.0 K/mcL (4.3-11.1) 11/22/17 16:35 RBC 3.75 M/mcL (3.82-4.97) L 11/22/17 16:35 Hgb 8.8 g/dL (11.5-15.4) L 11/22/17 20:21 Hct 27.8 % (35.3-44.9) L 11/22/17 20:21 MCV 84.0 fL (83.0-100.0) 11/22/17 16:35 MCH 26.9 pg (28.0-33.3) L 11/22/17 16:35 MCHC 32.1 g/dL (31.6-35.5) 11/22/17 16:35 RDW 13.4 % (11.5-14.5) 11/22/17 16:35 Plt Count 306 K/mcL (140-400) 11/22/17 16:35 MPV 9.9 fL (9.4-12.4) 11/22/17 16:35 Immature Gran % 0.4 % (0-4) 11/22/17 16:35 Seg Neutrophils % 68.3 % 11/22/17 16:35 Lymphocytes % 22.7 % 11/22/17 16:35 Monocytes % 6.3 % 11/22/17 16:35 Eosinophils % 1.8 % 11/22/17 16:35 Basophils % 0.5 % 11/22/17 16:35 Neutrophils # 5.4 K/mcL (1.6-8.9) 11/22/17 16:35 Lymphocytes # 1.8 K/mcL (0.6-4.6) 11/22/17 16:35 Monocytes # 0.5 K/mcL (0.0-1.3) 11/22/17 16:35 Eosinophils # 0.1 K/mcL (0.0-0.6) 11/22/17 16:35 Basophils # 0.0 K/mcL (0.0-0.2) 11/22/17 16:35 PT 11.6 Seconds (9.4-12.1) 11/22/17 16:35 INR 1.1 11/22/17 16:35 Sodium 139 mEq/L (136-145) 11/22/17 16:35 Potassium 4.0 mEq/L (3.5-5.1) 11/22/17 16:35 Chloride 105 mEq/L (98-107) 11/22/17 16:35 Carbon Dioxide 25 mEq/L (23-29) 11/22/17 16:35 BUN 14 mg/dL (6-20) 11/22/17 16:35 Creatinine 0.65 mg/dL (0.60-1.20) 11/22/17 16:35 Est GFR ( Amer) > 60 (> 60) 11/22/17 16:35 Est GFR (Non-Af Amer) > 60 (> 60) 11/22/17 16:35 BUN/Creatinine Ratio 22 (6-26) 11/22/17 16:35 Glucose 86 mg/dL (70-105) 11/22/17 16:35 Calculated Osmolality 288 (280-300) 11/22/17 16:35 Calcium 9.6 mg/dL (8.6-10.3) 11/22/17 16:35 Total Bilirubin 0.4 mg/dL (0.3-1.0) 11/22/17 16:35 Direct Bilirubin 0.1 mg/dL (0.0-0.2) 11/22/17 16:35 Indirect Bilirubin 0.3 mg/dL (0.0-1.2) 11/22/17 16:35 AST 19 Units/L (13-39) 11/22/17 16:35 ALT 24 Units/L (7-52) 11/22/17 16:35 Alkaline Phosphatase 64 Units/L (34-104) 11/22/17 16:35 Serum Total Protein 7.2 g/dL (6.4-8.9) 11/22/17 16:35 Albumin 4.3 g/dL (3.5-5.7) 11/22/17 16:35 Globulin 2.9 g/dL (2.4-3.5) 11/22/17 16:35 Albumin/Globulin Ratio 1.5 (1.1-2.2) 11/22/17 16:35 Beta HCG, Quant 43 mIU/mL (Less than 5) H 11/22/17 16:35 Urine Color Yellow (Yellow) 11/22/17 17:12 Urine Clarity Clear (Clear) 11/22/17 17:12 Urine pH 5.5 pH Units (5.0-8.0) 11/22/17 17:12 Ur Specific [place] 1.026 (1.010-1.025) H 11/22/17 17:12 Urine Protein Trace mg/dL (Neg-Trace) 11/22/17 17:12 Urine Glucose (UA) Normal mg/dL (Normal) 11/22/17 17:12 Urine Ketones Negative mg/dL (Negative) 11/22/17 17:12 Urine Blood Large (Negative) H 11/22/17 17:12 Urine Nitrite Negative (Negative) 11/22/17 17:12 Urine Bilirubin Negative (Negative) 11/22/17 17:12 Urine Urobilinogen Normal mg/dL (Normal) 11/22/17 17:12 Ur Leukocyte Esterase Negative (Negative) 11/22/17 17:12 Urine Microscopic RBC 5-15 per hpf (0-3) H 11/22/17 17:12 Urine Microscopic WBC 3-5 per hpf (0-3) H 11/22/17 17:12 Ur Squamous Epith Cells Many per lpf (None-Few) H 11/22/17 17:12 Urine Bacteria None Seen per hpf (None-Few) 11/22/17 17:12 Hyaline Casts None Seen per lpf (None-Few) 11/22/17 17:12 Ur Culture Indicated? NO (NO) 11/22/17 17:12 Blood Type A POSITIVE 11/22/17 16:35 Antibody Screen NEGATIVE 11/22/17 16:35 Crossmatch See Detail 11/22/17 16:35 Impressions Transvaginal US 11/22/17 21:09 IMPRESSION: 1. No intrauterine gestational sac. Heterogeneously thickened endometrium with increased vascularity concerning for retained products of conception and/or hemorrhage in the setting of failed early . There is questionable extension of the endometrial material into the anterior fundal myometrium. 2. Normal bilateral arterial and venous ovarian Doppler flow. 3. Small volume of simple appearing free fluid. D/ / Tripp Bentley MD / Tripp Bentley MD Interpreting Provider: Tripp Bentley MD D/ / Tripp Bentley MD / Tripp Bentley MD Interpreting Provider: Tripp Bentley MD Anesthesia Exam Vital Signs/O2 Sat/Glucose, Most Current Temp Pulse Resp BP Pulse Ox 11/23/17 08:03 97.7 F 84 16 113/76 100 11/23/17 06:03 97.6 F 88 16 112/75 98 Vital Signs Temp Pulse Resp BP Pulse Ox 11/22/17 22:07 98.4 F 97 16 127/85 100 11/22/17 21:25 99.5 F 99 16 136/92 98 11/22/17 21:10 99.2 F 105 18 138/98 11/22/17 21:03 110 120/95 100 11/22/17 20:20 124 18 139/84 100 11/22/17 18:19 99 11/22/17 18:18 81 130/91 99 11/22/17 16:57 98.1 F 84 16 139/101 100 11/22/17 15:58 98.1 F 84 16 139/101 100 Intake and Output 11/22/17 11/22/17 11/22/17 07:59 15:59 23:59 Intake Total 2400 / 2400 Balance 2400 / 2400 Intake: IV Fluids 1000 / 1000 0.9 % Sodium Chloride 1,000 ML 1000 / 1000 @ 3750 mls/hr IVC .Q16M ONE Rx# :[id number] Blood Product 1400 / 1400 Rbcs Leuko Poor As-1 Unit 700 / 700 [id number] Rbcs Leuko Poor As-3 2nd Unit 700 / 700 [id number] Other: Weight 97.522 kg 97.522 kg Patient Weight 11/22/17 23:59 Weight 97.522 kg Height: 5'7" Weight: 215# BMI = 33.7 - HEENT Pupil (Motor): Pupils equal, EOMI Mallampati: III Teeth: Normal Oral Opening: Greater than 3 - MANAGER [employer] CHAIN PLANNING LOC: Oriented MANAGER [employer] PLANNING Motor: Normal RUE, Normal LUE, Normal RLE, Normal LLE, Normal Face [employer]NAGER [employer]ING Sensory: Normal: RUE, LUE, RLE, LLE, Face - Cardiac Rhythm: Regular Murmur: None JVD: No - Pulmonary Breath Sounds: bilateral Clear Respiratory Effort: Symmetrical Anesthesia Assess/Plan ASA Score: 2 (Vaginal Bleeding, HTN, Anxiety/Depression), E Modified [place] Scale for Level of Consciousness: Anixous, agitated or restless Anesthetic Plan: General Monitoring Plan: Standard Monitors Recovery Plan: PACU Anes Supervising Prov Stmt: PT seen/evaluated, R&B discussed, questions answered and consent obtained. Rosa Catherine MD
--- NOTE | 2017-11-22 23:21 | Emergency Department Note ---
Disposition Clinical Impression: Vaginal bleeding, Anemia due to acute blood loss, Sinus tachycardia Disposition: Admitted As Inpatient Condition: Serious General Adult HPI - General Chief complaint: ED Vaginal Bleeding Stated complaint: Miscarriage 9th, Vag bleed since Time Seen by Provider: 11/22/17 16:01 Source: patient Mode of arrival: ambulatory Limitations: no limitations Nursing Notes Reviewed: Yes Vital Signs Reviewed: Yes - History of Present Illness Pain Scale: 0 - Related Data Home Medications Medication Instructions Recorded Confirmed ALPRAZolam [Xanax 1 MG Tablet] 1 mg PO BID 10/24/17 10/24/17 Amitriptyline [Elavil] 25 mg PO BID 10/24/17 10/24/17 Labetalol [Trandate] 100 mg PO DAILY 10/24/17 10/24/17 Pnv with Ca,No.72/Iron/FA [Pnv 1 tab PO DAILY 10/24/17 10/24/17 Plus Multivit Tab] Sertraline [Zoloft] 50 mg PO DAILY 10/24/17 10/24/17 Previous Rx's Medication Instructions Recorded Acetaminophen [Tylenol] 650 mg PO Q6HR PRN tablet 10/27/17 Ferrous Sulfate 325 mg PO DAILY #60 tablet 10/27/17 Labetalol [Trandate] 50 mg PO BID tablet 10/27/17 Methylergonovine [Methergine] 0.2 mg PO TID #6 tablet 10/27/17 Allergies Allergy/AdvReac Type Severity Reaction Status Date / Time No Known Allergies Allergy Verified 09/30/17 12:15 Constitutional: Denies: fever, chills, weakness Eyes: Denies: vision change Cardiovascular: Denies: chest pain Respiratory: Denies: cough, dyspnea Gastrointestinal: Reports: abdominal pain (Pelvic). 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 - Social History Smoking Status: Never smoker Smokeless Tobacco Status: No Alcohol use: Reports: rarely Drug use: Reports: none Physical Exam - General Limitations: no limitations General appearance: alert Course Vital Signs Temperature 98.1 F 11/22/17 15:58 Pulse Rate 84 11/22/17 15:58 Respiratory Rate 16 11/22/17 15:58 Blood Pressure 139/101 11/22/17 15:58 O2 Sat by Pulse Oximetry 100 11/22/17 15:58 Temperature 98.4 F 11/22/17 22:07 Pulse Rate 97 11/22/17 22:07 Respiratory Rate 16 11/22/17 22:07 Blood Pressure 127/85 11/22/17 22:07 O2 Sat by Pulse Oximetry 100 11/22/17 22:07 Oxygen Delivery Oxygen Delivery Nasal Cannula Medical Decision Making - Lab Data Result diagrams: 11/22/17 23:08 11/22/17 16:35 Lab Results 11/22/17 11/22/17 11/22/17 Range/Units 16:35 16:35 16:35 WBC 8.0 (4.3-11.1) K/mcL RBC 3.75 L (3.82-4.97) M/mcL Hgb 10.1 L (11.5-15.4) g/dL Hct 31.5 L (35.3-44.9) % MCV 84.0 (83.0-100.0) fL MCH 26.9 L (28.0-33.3) pg MCHC 32.1 (31.6-35.5) g/dL RDW 13.4 (11.5-14.5) % Plt Count 306 (140-400) K/mcL MPV 9.9 (9.4-12.4) fL Immature Gran % 0.4 (0-4) % Seg Neutrophils % 68.3 % Lymphocytes % 22.7 % Monocytes % 6.3 % Eosinophils % 1.8 % Basophils % 0.5 % Neutrophils # 5.4 (1.6-8.9) K/mcL Lymphocytes # 1.8 (0.6-4.6) K/mcL Monocytes # 0.5 (0.0-1.3) K/mcL Eosinophils # 0.1 (0.0-0.6) K/mcL Basophils # 0.0 (0.0-0.2) K/mcL PT 11.6 (9.4-12.1) Seconds INR 1.1 Sodium 139 (136-145) mEq/L Potassium 4.0 (3.5-5.1) mEq/L Chloride 105 (98-107) mEq/L Carbon Dioxide 25 (23-29) mEq/L BUN 14 (6-20) mg/dL Creatinine 0.65 (0.60-1.20) mg/dL Est GFR ( Amer) > 60 (> 60) Est GFR (Non-Af Amer) > 60 (> 60) BUN/Creatinine Ratio 22 (6-26) Glucose 86 (70-105) mg/dL Calculated Osmolality 288 (280-300) Calcium 9.6 (8.6-10.3) mg/dL Total Bilirubin 0.4 (0.3-1.0) mg/dL Direct Bilirubin 0.1 (0.0-0.2) mg/dL Indirect Bilirubin 0.3 (0.0-1.2) mg/dL AST 19 (13-39) Units/L ALT 24 (7-52) Units/L Alkaline Phosphatase 64 (34-104) Units/L Serum Total Protein 7.2 (6.4-8.9) g/dL Albumin 4.3 (3.5-5.7) g/dL Globulin 2.9 (2.4-3.5) g/dL Albumin/Globulin Ratio 1.5 (1.1-2.2) Beta HCG, Quant 43 H (Less than 5) mIU/mL Urine Color (Yellow) Urine Clarity (Clear) Urine pH (5.0-8.0) pH Units Ur Specific [place] (1.010-1.025) Urine Protein (Neg-Trace) mg/dL Urine Glucose (UA) (Normal) mg/dL Urine Ketones (Negative) mg/dL Urine Blood (Negative) Urine Nitrite (Negative) Urine Bilirubin (Negative) Urine Urobilinogen (Normal) mg/dL Ur Leukocyte Esterase (Negative) Urine Microscopic RBC (0-3) per hpf Urine Microscopic WBC (0-3) per hpf Ur Squamous Epith Cells (None-Few) per lpf Urine Bacteria (None-Few) per hpf Hyaline Casts (None-Few) per lpf Ur Culture Indicated? (NO) Blood Type Antibody Screen Crossmatch 11/22/17 11/22/17 11/22/17 Range/Units 16:35 17:12 20:21 WBC (4.3-11.1) K/mcL RBC (3.82-4.97) M/mcL Hgb 8.8 L (11.5-15.4) g/dL Hct 27.8 L (35.3-44.9) % MCV (83.0-100.0) fL MCH (28.0-33.3) pg MCHC (31.6-35.5) g/dL RDW (11.5-14.5) % Plt Count (140-400) K/mcL MPV (9.4-12.4) fL Immature Gran % (0-4) % Seg Neutrophils % % Lymphocytes % % Monocytes % % Eosinophils % % Basophils % % Neutrophils # (1.6-8.9) K/mcL Lymphocytes # (0.6-4.6) K/mcL Monocytes # (0.0-1.3) K/mcL Eosinophils # (0.0-0.6) K/mcL Basophils # (0.0-0.2) K/mcL PT (9.4-12.1) Seconds INR Sodium (136-145) mEq/L Potassium (3.5-5.1) mEq/L Chloride (98-107) mEq/L Carbon Dioxide (23-29) mEq/L BUN (6-20) mg/dL Creatinine (0.60-1.20) mg/dL Est GFR ( Amer) (> 60) Est GFR (Non-Af Amer) (> 60) BUN/Creatinine Ratio (6-26) Glucose (70-105) mg/dL Calculated Osmolality (280-300) Calcium (8.6-10.3) mg/dL Total Bilirubin (0.3-1.0) mg/dL Direct Bilirubin (0.0-0.2) mg/dL Indirect Bilirubin (0.0-1.2) mg/dL AST (13-39) Units/L ALT (7-52) Units/L Alkaline Phosphatase (34-104) Units/L Serum Total Protein (6.4-8.9) g/dL Albumin (3.5-5.7) g/dL Globulin (2.4-3.5) g/dL Albumin/Globulin Ratio (1.1-2.2) Beta HCG, Quant (Less than 5) mIU/mL Urine Color Yellow (Yellow) Urine Clarity Clear (Clear) Urine pH 5.5 (5.0-8.0) pH Units Ur Specific [place] 1.026 H (1.010-1.025) Urine Protein Trace (Neg-Trace) mg/dL Urine Glucose (UA) Normal (Normal) mg/dL Urine Ketones Negative (Negative) mg/dL Urine Blood Large H (Negative) Urine Nitrite Negative (Negative) Urine Bilirubin Negative (Negative) Urine Urobilinogen Normal (Normal) mg/dL Ur Leukocyte Esterase Negative (Negative) Urine Microscopic RBC 5-15 H (0-3) per hpf Urine Microscopic WBC 3-5 H (0-3) per hpf Ur Squamous Epith Cells Many H (None-Few) per lpf Urine Bacteria None Seen (None-Few) per hpf Hyaline Casts None Seen (None-Few) per lpf Ur Culture Indicated? NO (NO) Blood Type A POSITIVE Antibody Screen NEGATIVE Crossmatch See Detail Critical Care Time Critical Care Time: Yes Total Critical Care Time: 35 Attestation: The high probability of a clinically significant, sudden or life threatening deterioration of the [[employer]] system(s) required my full and direct attention, intervention and personal management. The aggregate critical care time was [35] minutes. This time is in addition to time spent performing reported procedures but includes the following: [x] Data Review and interpretation [x] Patient assessment and monitoring of vital signs [x] Documentation [x] Medication orders and management Attestation Statement - Attestation Attestation: I examined this patient and my medical decision-making was reviewed with the Resident Physician, Dr. Batista. I agree with the documented findings, disposition and treatment plan as described except to the extent set forth below. Patient is a pleasant 27-year-old white female A1 who presents to the emergency Department with complaints of heavy vaginal bleeding and lightheadedness. Patient was admitted October 24 through October 27 for spontaneous AB resulting in symptomatic anemia requiring transfusion. Patient was discharged on October 27 with 3 days aside attack and states that since that time she has had just occasional vaginal spotting until 3 days ago when she began having heavy vaginal bleeding that has gradually worsened passing large clots at home and becoming lightheaded today. Patient is brought in by her for evaluation. Patient's vital signs were stable on arrival she was complaining of some very mild suprapubic cramping and occasionally passing large clots. Bleeding had slowed on arrival to the ED and patient with no other complaints no shortness of breath, no syncope at home prior to arrival, no chest pain pressure or heaviness, no fevers or chills no vaginal discharge or foul vaginal orders. I agree with patient's physical exam findings as documented. Vital signs are stable on arrival. Offered patient a pelvic exam but patient declined stating that she felt her bleeding had improved. Lab evaluation shows patient's hemoglobin to be around 10 and remains hemodynamically stable with no significant increase in bleeding while in the ED up to this point. HCG Quant had dropped dramatically and was 43 today remainder of labs were unremarkable. We did contact patient [employer] his Dr. Pierce has, Shannan Jean was battalion chief and we discussed the case with her. She agreed with discharge home and to follow-up in the office in the next few days. We planned for discharge and on assessment at time of disposition patient was complaining of some increased cramping and increased vaginal bleeding. We decided to hold the patient for observation in the ED. Serial evaluation showed the patient to continue to be hemodynamically stable with no significant blood loss or passage of clots although is having some mild vaginal bleeding. We again offered pelvic exam patient declined. I went to reassess the patient and she was acutely diaphoretic, pale in color, and had had a sudden "gush of blood" and he should with a large amount of very large clots and significant vaginal bleeding that soaked through the blanket that was covering her. Patient was tachycardic but with a stable blood pressure. I called the alert team had a second IV placed started 2 L of normal saline IV wide open, called for 2 units of crossmatched blood. And performed a pelvic exam. Patient with brisk bright red blood per cervix and required active suctioning to clear. Patient passed a extremely large clot with some reduction in her bleeding but still having active bleeding from the cervix. Patient's heart rate was 120's-130's, with a stable blood pressure, IV fluids running, we changed to O- trauma blood due to delay in getting blood started in the ED. Dr. Nguyen was paged overhead to see the patient patient for possible operative intervention. Patient's heart rate with fluids and initiation of blood was around 110 with stable blood pressure at the time Dr. Nguyen arrived. He performed bimanual exam at bedside as well as stat pelvic ultrasound. Cytotec and Methergine were initiated. Patient remained with a mild tachycardia but stable blood pressure throughout. Dr. Nguyen stated there was retained thickened endometrium and blood in the uterus and decided to admit the patient with consult to anesthesia and observe closely at this time repeat hemoglobin we had drawn in the ED came back at 8.8. Patient will be admitted to Dr. Nguyen's service for possible D&C. Patient's status improved at this time.
[2017-11-23 04:47] LABS: Basophils % 0.4 %; Eosinophils # 0.1 K/mcL (0.0-0.6); Eosinophils % 1.3 %; Hematocrit 24.8 % (35.3-44.9); Immature Granulocytes % 0.5 % (0-4); Lymphocytes # 2.4 K/mcL (0.6-4.6); Lymphocytes % 25.2 %; Mean Corpuscular HGB Conc 33.1 g/dL (31.6-35.5); Mean Corpuscular Hemoglobin 27.3 pg (28.0-33.3); Mean Corpuscular Volume 82.7 fL (83.0-100.0); Mean Platelet Volume 10.3 fL (9.4-12.4); Monocytes # 0.6 K/mcL (0.0-1.3); Monocytes % 5.9 %; Neutrophils # 6.5 K/mcL (1.6-8.9); Platelet Count 232 K/mcL (140-400); Red Cell Distribution Width 13.4 % (11.5-14.5); Segmented Neutrophils % 66.7 %
[2017-11-23 04:48] LABS: Hemoglobin 8.2 g/dL (11.5-15.4)
[2017-11-23] MEDS: Ringers Solution, Lactated 1,000 ML IVC SCH ×2 (05:52→12:34)
[2017-11-23] MEDS: Acetaminophen IV 1,000 MG/100 ML INFUS..BTL IVPB SCH ×3 (05:53→12:36)
[2017-11-23] MEDS ORDERED: Ondansetron 4 MG/2 ML VIAL ONE ×2 (08:45→08:49)
[2017-11-23] MEDS ORDERED: *HR* FentaNYL (PF) 100 MCG/2 ML VIAL ONE ×2 (08:45→10:21)
[2017-11-23] MEDS ORDERED: Lidocaine -MPF 2% 2 ML VIAL ONE (08:45)
[2017-11-23] MEDS ORDERED: *HR* Succinylcholine 200 MG/10 ML VIAL IVP ONE (08:45)
[2017-11-23] MEDS ORDERED: *HR* Midazolam HCl 2 MG/2 ML VIAL ONE (08:46)
[2017-11-23] MEDS ORDERED: Methylergonovine 0.2 MG/ML AMPUL IM ONE (08:46)
[2017-11-23] MEDS ORDERED: *HR* Propofol 200 MG/20 ML VIAL IVP ONE (08:46)
[2017-11-23] MEDS ORDERED: Bupivacaine/EPI 1:200k 0.5%PF 10 ML VIAL ONE (08:47)
[2017-11-23] MEDS ORDERED: Dexamethasone 4 MG/ML VIAL ONE (08:49)
[2017-11-23] MEDS ORDERED: *HR* Promethazine 25 MG/ML VIAL IVP PRN (09:02)
[2017-11-23] MEDS ORDERED: Water for inj. (sterile) 10 ML IV ONE (09:03)
[2017-11-23] MEDS ORDERED: miSOPROStol 100 MCG TABLET RC STA (09:06)
--- NOTE | 2017-11-23 09:12 | History & Physical Report ---
Date of Encounter: 11/23/17 Time of Encounter: 09:11 24 Hour HP Update - Instructions Instructions: If the History and Physical is less than 30 days old and was completed prior to A.M. admission and or procedure and has NOT been updated on calendar day of procedure please complete this update prior to performing procedure. - Update Patient reports changes in Medical Condition: No Changes in examination, assessment, or condition: No Changes in Medication: No Preop tests/diagnostics Reviewed: Yes Surgery Remains Indicated: Yes Consent for Planned Operative Procedure(s) Verified: Yes - Pre-Operative Checklist Preoperative Checklist Indicated: Yes Prophylactic Antibiotic Ordered: Yes Home Medications Include Beta Seth: No Beta Seth Taken Today (Day of Surgery): No Beta Seth Taken Yesterday (Day Prior to Surgery): No Is VTE Prophylaxis Indicated?: Yes
[2017-11-23] MEDS ORDERED: Lidocaine -MPF 4% 5 ML AMPUL ONE (09:14)
[2017-11-23] MEDS ORDERED: Doxycycline 100 MG CAPSULE PO STA (09:19)
[2017-11-23] MEDS ORDERED: *HR* Vasopressin 20 UNIT/ML VIAL ONE (10:04)
[2017-11-23] MEDS ORDERED: 0.9 % Sodium Chloride Mini Bag 100 ML ONE (10:05)
--- NOTE | 2017-11-23 10:24 | OB/GYN Procedure Note ---
[facility]: Procedure - Diagnosis Date of procedure: 11/23/17 Pre-op diagnosis: hemorrhage, MAB Post-op diagnosis: same - Procedure Procedure: Suction D&C Surgeon: Danuta Guadalupe Was there an visitor use assistant present: No Anesthesia Type: General Estimated blood loss (cc): 150 Fluids: crystalloid Procedure Complications: none Specimens collected: blood clots, foul smelling placenta looking tissue Disposition: same day Findings: foul smelling placenta looking tissue extracted Narrative: The patient was taken to the operating room where general anesthesia was administered without difficulty. The patient was prepped and draped in usual sterile fashion in lithotomy position. A weighted speculum was placed. The anterior lip of the cervix was grasped with a single tooth tenaculum. At this time, a 9-mm suction curettage was advanced into the uterine cavity without difficulty and was used to suction contents of the uterus. Foul smelling clots and placenta looking tissue was suctioned from the uterus. Following removal of the uterine contents, a curette was advanced into the uterine cavity and was used to scrape the four maher of the uterus. At this time, the suction curette was advanced one additional time to suction any remaining products. I injected 40 Units of vasopressin intracervically to control hemorrhage. I also gave her Hemabate 250mcg x 1 dose and 1000mcg of cytotec rectally. Hemostasis was visualized. All instruments were removed. The patient was stable at the completion of the procedure. Sponge, lap, and instrument counts were correct. The patent was transfered to the recovery room in stable condition.
[2017-11-23] MEDS ORDERED: Doxycycline 100 MG CAPSULE PO SCH (10:30)
--- NOTE | 2017-11-23 10:39 | Discharge Summary ---
Date of Encounter: 11/23/17 Time of Encounter: 10:37 - Discharge Diagnosis (1) Vaginal bleeding Priority: Primary Status: Acute Comments: status post suction dilation and curettage, POD#0, patient is doing well, I've sent her Tranexamic acid, Doxycycline and Motrin as discharge meds, Patient to follow up in the office in 2 weeks. - Discharge Medications Prescriptions: Ibuprofen [Motrin] 600 mg PO Q6HR PRN #60 tab PRN Reason: Pain Doxycycline 100 mg PO BID #14 capsule Tranexamic Acid [Lysteda] 1,300 mg PO TID #15 tablet Home Medications: ALPRAZolam [Xanax 1 MG Tablet] 1 mg PO BID 10/24/17 [History] Amitriptyline [Elavil] 25 mg PO BID 10/24/17 [History] Labetalol [Trandate] 100 mg PO DAILY 10/24/17 [History] Pnv with Ca,No.72/Iron/FA [Pnv Plus Multivit Tab] 1 tab PO DAILY [History] Sertraline [Zoloft] 50 mg PO DAILY 10/24/17 [History] Acetaminophen [Tylenol] 650 mg PO Q6HR PRN tablet 10/27/17 [Rx] Ferrous Sulfate 325 mg PO DAILY #60 tablet 10/27/17 [Rx] Labetalol [Trandate] 50 mg PO BID tablet 10/27/17 [Rx] Methylergonovine [Methergine] 0.2 mg PO TID #6 tablet 10/27/17 [Rx] Doxycycline 100 mg PO BID #14 capsule 11/23/17 [Rx] Ibuprofen [Motrin] 600 mg PO Q6HR PRN #60 tab 11/23/17 [Rx] Tranexamic Acid [Lysteda] 1,300 mg PO TID #15 tablet 11/23/17 [Rx] Allergies/Adverse Reactions: 3 Allergy/AdvReac Type Severity Reaction Status Date / Time No Known Allergies Allergy Verified 09/30/17 12:15 Data Procedures and tests throughout hospitalization: Laboratory Tests 11/22/17 11/23/17 23:08 04:31 WBC 13.2 H D 9.7 RBC 3.63 L 3.00 L Hgb 9.9 L 8.2 L D Hct 31.5 L 24.8 L MCV 86.8 82.7 L MCH 27.3 L 27.3 L MCHC 31.4 L 33.1 RDW 13.3 13.4 Plt Count 258 232 MPV 10.6 10.3 Immature Gran % 0.4 0.5 Seg Neutrophils % 78.2 66.7 Lymphocytes % 15.0 25.2 Monocytes % 5.1 5.9 Eosinophils % 0.9 1.3 Basophils % 0.4 0.4 Neutrophils # 10.3 H 6.5 Lymphocytes # 2.0 2.4 Monocytes # 0.7 0.6 Eosinophils # 0.1 0.1 Basophils # 0.1 0.0 Labs on day of discharge: Labs from last 24 hours 11/23/17 11/22/17 04:31 23:08 WBC 9.7 13.2 H D RBC 3.00 L 3.63 L Hgb 8.2 L D 9.9 L Hct 24.8 L 31.5 L MCV 82.7 L 86.8 MCH 27.3 L 27.3 L MCHC 33.1 31.4 L RDW 13.4 13.3 Plt Count 232 258 MPV 10.3 10.6 Immature Gran % 0.5 0.4 Seg Neutrophils % 66.7 78.2 Lymphocytes % 25.2 15.0 Monocytes % 5.9 5.1 Eosinophils % 1.3 0.9 Basophils % 0.4 0.4 Neutrophils # 6.5 10.3 H Lymphocytes # 2.4 2.0 Monocytes # 0.6 0.7 Eosinophils # 0.1 0.1 Basophils # 0.0 0.1 Date of admission: 11/22/17 22:13 Primary care physician: Carmen Jesus CNP Consults: 11/22/17 22:47 Consult to Anesthesiology [CONS] Routine Consulting Provider: Anesthesia [place] Reason for Consult: potential surgery Time Notified: 22:49 Call Completed: Yes 11/23/17 01:32 Consult to Pastoral Services [CONS] Routine Comment: - Patient Status Disposition: Home, Self-Care Condition: Good Functional capacity at discharge: independent ambulation Overall status at discharge: patient is progressing back to baseline - Discharge Instructions Follow Up With: Carmen Jesus CNP [Primary Care Provider] - Hospital Course [facility] Time Attestation: Total time spent providing and/or coordinating discharge services: Exam - Constitutional Vitals: Temp Pulse Resp BP Pulse Ox 97.7 F 84 16 113/76 100 11/23/17 08:03 11/23/17 08:03 11/23/17 08:03 11/23/17 08:03 11/23/17 08:03 General appearance IM: A&O X 3 - Respiratory Respiratory exam: Present: CTAB - Cardiovascular Cardiovascular exam IM: Present: RRR - GI/Abdominal GI/Abdominal exam IM: normal bowel sounds - Uterine Tone: Firm - VTE Reasons for not Prescribing Prophylaxis: Medical contraindication Documentation of Mechanical Device: Intermittent pneumatic compression device
[2017-11-23] MEDS: *HR* Morphine 2 MG/ML SYRINGE IVP PRN ×5 (10:43→11:03)
[2017-11-23] MEDS: *HR* Labetalol 20 MG/4 ML SYRINGE IVP PRN ×2 (11:23→11:28)
--- NOTE | 2017-11-23 11:43 | Anesthesia Evaluation Post Op ---
Date of Encounter: 11/23/17 Time of Encounter: 11:42 - Vital Signs Vital Signs: Vital Signs/O2 Sat, Most Current Temp Pulse Resp BP Pulse Ox 97.4 F L 80 18 154/103 95 11/23/17 11:00 11/23/17 11:20 11/23/17 11:20 11/23/17 11:20 11/23/17 11:20 - Lungs Lungs: Clear Ascult./Percussion - Airway Airway: Non-obstructed - Cardiovascular Regular Rate - Mental Status Mental Status: Alert & Oriented, Answers Appropriately - Pain Pain Scale: 3 Pain Scale used: Numeric (1 - 10) - Nausea Vomiting Nausea Vomiting: Not Present - Hydration Hydration: Ice chips, Has not voided - Discharge PostOp Status: Transfer Patient to floor
[2017-11-23 16:42] VITALS: BP 124/84
== END 2017-11-23 17:25 | disposition home or self-care (01) ==
LOC: EMEROO 15:46 → 1NENUOBS 15:46
PROVIDERS: ADMIT Obstetrics & Gynecology; ATTEND Obstetrics & Gynecology

== ENCOUNTER 2020-01-05 18:29 | Observation (INO) ==
[2020-01-05 19:42] LABS: Bacteria,Urine Few per hpf (None-Few); Bilirubin,Urine Negative (Negative); Blood,Urine Small (Negative); Calcium Oxalate Crystals,Urine Present; Clarity,Urine Turbid (Clear); Color,Urine Yellow (Yellow); Glucose,Urine (UA) Normal (Normal); Ketones,Urine Trace mg/dL (Negative); Leukocyte Esterase,Urine Large (Negative); Mucus,Urine Few per lpf (None-Few); Nitrite,Urine Positive (Negative); Protein,Urine 50 mg/dL (Neg-Trace); RBC,Urine 50-100 per hpf (0-3); Specific Gravity,Urine 1.029 (1.010-1.025); Squamous Epithelial Cell,Urine Moderate per hpf (None-Few); Urobilinogen,Urine Normal (Normal); WBC,Urine 50-100 per hpf (0-3)
[2020-01-05 20:48] LABS: Candida DNA Not Detected (Not Detect); Gardnerella DNA DETECTED (Not Detect); Trichomonas DNA Not Detected (Not Detect)
== END 2020-01-05 21:12 | disposition home or self-care (01) ==
LOC: 1NENULAB
PROVIDERS: ADMIT Obstetrics & Gynecology; ATTEND Obstetrics & Gynecology

== ENCOUNTER 2020-01-15 21:54 | Observation (INO) ==
[2020-01-15] MEDS ORDERED: Lidocaine -MPF 1% 2 ML VIAL INFILT ONE (22:08)
[2020-01-15] MEDS ORDERED: Lidocaine 1% 20 ML MDV ONE (22:14)
[2020-01-15] MEDS ORDERED: Benzocaine/Menthol 56 GM AEROSOL SPRAY TP PRN (22:41)
== END 2020-01-15 23:03 | disposition home or self-care (01) ==
LOC: 1NENULAB
PROVIDERS: ADMIT Student in an Organized Health Care Education/Training Program; ATTEND Student in an Organized Health Care Education/Training Program

== ENCOUNTER 2020-01-30 10:09 | Inpatient (IN) ==
[2020-01-30] MEDS ORDERED: Ringers Solution, Lactated 1,000 ML IVC ONE (10:11)
[2020-01-30] MEDS ORDERED: Oxytocin 20 units/ LR 1000 mL 20 UNIT/1,000 ML BAG IVC ONE (10:11)
[2020-01-30] MEDS ORDERED: Famotidine 20 MG/2 ML VIAL IVP ONE (10:11)
[2020-01-30] MEDS ORDERED: CeFAZolin 2,000 MG/50 ML BAG IVPB ONE (10:11)
[2020-01-30] MEDS ORDERED: Metoclopramide 10 MG/2 ML VIAL IVP ONE (10:11)
[2020-01-30] MEDS ORDERED: Ringers Solution, Lactated 1,000 ML IVC SCH ×2 (10:15→16:37)
[2020-01-30] MEDS ORDERED: *HR* Phenylephrine 10 MG/ML VIAL ONE (11:39)
[2020-01-30] MEDS ORDERED: Ringers Solution, Lactated 1,000 ML ONE ×2 (11:39→13:11)
[2020-01-30] MEDS ORDERED: *HR* Oxytocin 10 UNIT/ML VIAL IM ONE (11:39)
[2020-01-30] MEDS ORDERED: *HR* Morphine Sulfate/PF 10 MG/10 ML AMPUL ONE (11:39)
[2020-01-30] MEDS ORDERED: *HR* FentaNYL (PF) 100 MCG/2 ML VIAL ONE (11:39)
[2020-01-30] MEDS ORDERED: Lidocaine -MPF 2% 5 ML VIAL ONE (11:47)
[2020-01-30 12:00] LABS: Amphetamine Screen,Urine Negative ng/mL (Cutoff=1000); Barbiturate Screen,Urine Negative ng/mL (Cutoff=200); Benzodiazepines Screen,Urine Negative ng/mL (Cutoff=200); Cannabinoid Screen,Urine Negative ng/mL (Cutoff = 50); Cocaine Screen,Urine Negative ng/mL (Cutoff= 300); Opiate Screen,Urine Negative ng/mL (Cutoff=300); Phencyclidine Screen,Urine Negative ng/mL (Cutoff=25)
[2020-01-30 12:03] LABS: Basophils % 0.2 %; Eosinophils # 0.1 K/mcL (0.0-0.6); Eosinophils % 0.4 %; Hematocrit 34.2 % (35.3-44.9); Hemoglobin 11.1 g/dL (11.5-15.4); Lymphocytes % 14.6 %; Mean Corpuscular HGB Conc 32.5 g/dL (31.6-35.5); Mean Corpuscular Hemoglobin 27.2 pg (28.0-33.3); Mean Corpuscular Volume 83.8 fL (83.0-100.0); Mean Platelet Volume 11.1 fL (9.4-12.4); Monocytes # 0.7 K/mcL (0.0-1.3); Monocytes % 5.2 %; Neutrophils # 10.7 K/mcL (1.6-8.9); Platelet Count 247 K/mcL (140-400); Red Blood Count 4.08 M/mcL (3.82-4.97); Red Cell Distribution Width 14.6 % (11.5-14.5); Segmented Neutrophils % 78.6 %; White Blood Count 13.6 K/mcL (4.3-11.1)
[2020-01-30] MEDS ORDERED: *HR* Midazolam HCl 2 MG/2 ML VIAL ONE (13:21)
[2020-01-30] MEDS ORDERED: *HR* Meperidine 50 MG/ML SYRINGE IVP PRN (13:34)
[2020-01-30] MEDS ORDERED: Ondansetron 4 MG/2 ML VIAL IVP PRN ×2 (13:34→16:37)
[2020-01-30] MEDS ORDERED: *HR* Promethazine 25 MG/ML VIAL IVP PRN (13:34)
[2020-01-30] MEDS ORDERED: *HR* Midazolam HCl 2 MG/2 ML VIAL IVP PRN (13:34)
[2020-01-30] MEDS ORDERED: Naloxone 0.4 MG/ML INJ IVP PRN (13:34)
[2020-01-30] MEDS ORDERED: Acetaminophen IV 1,000 MG/100 ML INFUS..BTL ONE (13:37)
[2020-01-30] MEDS ORDERED: *HR* Labetalol 20 MG/4 ML SYRINGE IVP PRN (14:17)
[2020-01-30] MEDS ORDERED: *HR* HYDROmorphone PF 0.5 MG/0.5 ML SYRINGE IVP PRN (15:17)
[2020-01-30 15:31] LABS: Alanine Aminotransferase 11 Units/L (7-52); Aspartate Amino Transferase 15 Units/L (13-39); BUN/Creatinine Ratio 17 (6-26); Blood Urea Nitrogen 8 mg/dL (6-20); Creatinine,Urine 120 mg/dL; Lactate Dehydrogenase 200 Units/L (140-271); Protein/Creatinine Ratio,Urine 0.17 mg/mg (0.00-0.20); Uric Acid 3.5 mg/dL (2.3-7.6); eGFR For African Americans > 60 (> 60); eGFR For Non-African Americans > 60 (> 60)
[2020-01-30] MEDS ORDERED: Oxytocin 20 units/ LR 1000 mL 20 UNIT/1,000 ML BAG IVC SCH (16:37)
[2020-01-30] MEDS ORDERED: Metoclopramide 10 MG/2 ML VIAL IVP PRN (16:37)
[2020-01-30] MEDS ORDERED: Rho Immune Globulin 1,500 UNIT SYRINGE IM ONE (16:37)
[2020-01-30] MEDS ORDERED: Sennosides 8.6 MG TABLET PO PRN (16:37)
[2020-01-30] MEDS: *HR* OxyCODONE/APAP 5/325 TABLET PO PRN ×2 (17:05→21:16)
[2020-01-30] MEDS: Simethicone 80 MG TAB.CHEW PO PRN (19:58)
[2020-01-30] MEDS: Ibuprofen 600 MG TABLET PO PRN (19:58)
[2020-01-31] MEDS: *HR* OxyCODONE/APAP 5/325 TABLET PO PRN ×5 (04:05→23:24)
[2020-01-31] MEDS: Prenatal Vit/FA 1 EACH TABLET PO SCH (08:04)
[2020-01-31] MEDS: Ibuprofen 600 MG TABLET PO PRN (08:09)
[2020-01-31] MEDS ORDERED: NON-FORMULARY MEDICATION 1 EACH EACH (Pnv No.95/Ferrous Fum/Folic Ac [Prenatal Caplet] 1 E PO SCH (09:00)
[2020-01-31 09:34] LABS: Basophils % 0.3 %; Eosinophils # 0.1 K/mcL (0.0-0.6); Eosinophils % 0.6 %; Hematocrit 28.7 % (35.3-44.9); Immature Granulocytes % 0.6 % (0-4); Lymphocytes # 1.7 K/mcL (0.6-4.6); Lymphocytes % 16.2 %; Mean Corpuscular HGB Conc 31.7 g/dL (31.6-35.5); Mean Corpuscular Volume 85.2 fL (83.0-100.0); Monocytes # 0.7 K/mcL (0.0-1.3); Monocytes % 6.9 %; Neutrophils # 8.1 K/mcL (1.6-8.9); Platelet Count 218 K/mcL (140-400); Red Blood Count 3.37 M/mcL (3.82-4.97); Red Cell Distribution Width 14.6 % (11.5-14.5); Segmented Neutrophils % 75.4 %; White Blood Count 10.7 K/mcL (4.3-11.1)
[2020-01-31 09:36] LABS: Hemoglobin 9.1 g/dL (11.5-15.4)
[2020-01-31] MEDS: Simethicone 80 MG TAB.CHEW PO PRN (12:58)
[2020-02-01] MEDS: *HR* OxyCODONE/APAP 5/325 TABLET PO PRN ×2 (03:05→08:05)
[2020-02-01] MEDS: Prenatal Vit/FA 1 EACH TABLET PO SCH (08:06)
[2020-02-01 08:10] VITALS: BP 138/90
[2020-02-01] MEDS: Ibuprofen 600 MG TABLET PO PRN (08:15)
== END 2020-02-01 10:26 | disposition home or self-care (01) | DRG 540 ==
LOC: 1NENULAB 10:09 → EDSTATUS 12:00 → 1NENUOBS 16:35
PROVIDERS: ADMIT Student in an Organized Health Care Education/Training Program; ATTEND Student in an Organized Health Care Education/Training Program

== ENCOUNTER 2021-02-25 07:05 | Inpatient (IN) ==
[2021-02-25] MEDS ORDERED: Ringers Solution, Lactated 1,000 ML IVC ONE (07:26)
[2021-02-25] MEDS ORDERED: Metoclopramide 10 MG/2 ML VIAL IVP ONE (07:26)
[2021-02-25] MEDS ORDERED: Famotidine 20 MG/2 ML VIAL IVP ONE (07:26)
[2021-02-25] MEDS ORDERED: CeFAZolin 2,000 MG/120 ML BAG IVPB ONE (07:26)
[2021-02-25] MEDS ORDERED: Oxytocin 20 units/ LR 1000 mL 20 UNIT/1,000 ML BAG IVC ONE ×2 (07:26→11:59)
[2021-02-25] MEDS ORDERED: Naloxone 0.4 MG/ML INJ IVP PRN (07:28)
[2021-02-25 08:25] LABS: Basophils % 0.2 %; Eosinophils # 0.1 K/mcL (0.0-0.6); Eosinophils % 0.6 %; Hematocrit 36.5 % (35.3-44.9); Hemoglobin 12.1 g/dL (11.5-15.4); Immature Granulocytes % 0.4 % (0-4); Lymphocytes # 1.6 K/mcL (0.6-4.6); Lymphocytes % 15.6 %; Mean Corpuscular HGB Conc 33.2 g/dL (31.6-35.5); Mean Corpuscular Hemoglobin 28.3 pg (28.0-33.3); Mean Corpuscular Volume 85.5 fL (83.0-100.0); Mean Platelet Volume 11.5 fL (9.4-12.4); Monocytes # 0.5 K/mcL (0.0-1.3); Monocytes % 5.2 %; Neutrophils # 7.9 K/mcL (1.6-8.9); Platelet Count 250 K/mcL (140-400); Red Blood Count 4.27 M/mcL (3.82-4.97); Red Cell Distribution Width 14.6 % (11.5-14.5); White Blood Count 10.2 K/mcL (4.3-11.1)
[2021-02-25 08:40] LABS: Influenza A PCR Negative (Negative); Influenza B PCR Negative (Negative); Resp. Syncytial Virus PCR Negative (Negative); SARS-CoV-2 by PCR (In House) Negative (Negative)
[2021-02-25] MEDS ORDERED: Ringers Solution, Lactated 1,000 ML ONE (09:15)
[2021-02-25] MEDS ORDERED: *HR* Morphine Sulfate/PF 10 MG/10 ML AMPUL ONE (09:34)
[2021-02-25] MEDS ORDERED: *HR* FentaNYL (PF) 100 MCG/2 ML VIAL ONE ×2 (09:34→10:43)
[2021-02-25] MEDS ORDERED: Acetaminophen IV 1,000 MG/100 ML BAG IVPB ONE (09:34)
[2021-02-25] MEDS ORDERED: Ondansetron 4 MG/2 ML VIAL ONE (09:35)
[2021-02-25] MEDS ORDERED: Ketorolac 30 MG/ML VIAL ONE (10:43)
[2021-02-25 10:54] LABS: Amphetamine Screen,Urine Negative ng/mL (Cutoff=1000); Barbiturate Screen,Urine Negative ng/mL (Cutoff=200); Benzodiazepines Screen,Urine Negative ng/mL (Cutoff=200); Cannabinoid Screen,Urine Negative ng/mL (Cutoff = 50); Cocaine Screen,Urine Negative ng/mL (Cutoff= 300); Opiate Screen,Urine Negative ng/mL (Cutoff=300); Phencyclidine Screen,Urine Negative ng/mL (Cutoff=25)
[2021-02-25] MEDS: *HR* HYDROmorphone PF 0.5 MG/0.5 ML SYRINGE IVP PRN ×2 (12:20→12:28)
[2021-02-25] MEDS ORDERED: Simethicone 80 MG TAB.CHEW PO PRN (13:35)
[2021-02-25] MEDS ORDERED: Ondansetron 4 MG/2 ML VIAL IVP PRN (13:35)
[2021-02-25] MEDS ORDERED: Rho Immune Globulin 1,500 UNIT SYRINGE IM ONE (13:35)
[2021-02-25] MEDS ORDERED: Metoclopramide 10 MG/2 ML VIAL IVP PRN (13:35)
[2021-02-25] MEDS: Acetaminophen 325 MG TABLET PO SCH ×2 (14:56→20:08)
[2021-02-25] MEDS: Ibuprofen 600 MG TABLET PO SCH ×2 (14:56→20:08)
[2021-02-25] MEDS: *HR* OxyCODONE/APAP 5/325 TABLET PO PRN (20:07)
[2021-02-25] MEDS: Oxytocin 20 units/ LR 1000 mL 20 UNIT/1,000 ML BAG IVC SCH (20:07)
[2021-02-26] MEDS: *HR* OxyCODONE/APAP 5/325 TABLET PO PRN ×2 (01:09→07:09)
[2021-02-26] MEDS: Ibuprofen 600 MG TABLET PO SCH ×4 (02:14→20:20)
[2021-02-26] MEDS: Acetaminophen 325 MG TABLET PO SCH ×4 (02:14→20:20)
[2021-02-26] MEDS: Ringers Solution, Lactated 1,000 ML IVC SCH ×2 (08:14→15:48)
[2021-02-26] MEDS: Prenatal Vit/FA 1 EACH TABLET PO SCH (08:17)
[2021-02-26] MEDS: Oxytocin 20 units/ LR 1000 mL 20 UNIT/1,000 ML BAG IVC SCH ×2 (08:18→08:36)
[2021-02-26 09:18] LABS: Basophils % 0.2 %; Eosinophils # 0.1 K/mcL (0.0-0.6); Eosinophils % 1.1 %; Hematocrit 31.2 % (35.3-44.9); Immature Granulocytes % 0.4 % (0-4); Lymphocytes % 12.4 %; Mean Corpuscular HGB Conc 31.7 g/dL (31.6-35.5); Mean Corpuscular Hemoglobin 27.9 pg (28.0-33.3); Mean Corpuscular Volume 87.9 fL (83.0-100.0); Mean Platelet Volume 11.3 fL (9.4-12.4); Monocytes # 0.6 K/mcL (0.0-1.3); Neutrophils # 6.7 K/mcL (1.6-8.9); Platelet Count 199 K/mcL (140-400); Red Blood Count 3.55 M/mcL (3.82-4.97); Red Cell Distribution Width 14.7 % (11.5-14.5); Segmented Neutrophils % 78.9 %; White Blood Count 8.4 K/mcL (4.3-11.1)
[2021-02-26 09:22] LABS: Hemoglobin 9.9 g/dL (11.5-15.4)
[2021-02-26] MEDS: *HR* OxyCODONE Immed Rel 5 MG TABLET PO PRN ×2 (11:24→19:28)
[2021-02-27] MEDS: Acetaminophen 325 MG TABLET PO SCH ×2 (02:44→08:17)
[2021-02-27] MEDS: Ibuprofen 600 MG TABLET PO SCH ×2 (02:45→08:18)
[2021-02-27] MEDS: *HR* OxyCODONE Immed Rel 5 MG TABLET PO PRN (05:33)
[2021-02-27] MEDS: Prenatal Vit/FA 1 EACH TABLET PO SCH (08:18)
[2021-02-27 09:21] VITALS: BP 138/88; TEMP 98.9; O2SAT 97
[2021-02-27 11:44] VITALS: PULSE 72
== END 2021-02-27 12:30 | disposition home or self-care (01) | DRG 539 ==
LOC: 1NENULAB 07:05 → 1NENUOBS 13:34
PROVIDERS: ADMIT Student in an Organized Health Care Education/Training Program; ATTEND Student in an Organized Health Care Education/Training Program